=== PATIENT | female | born 1960 | race Caucasian/White ===

== ENCOUNTER 2017-03-20 13:01 | Emergency (ER) | payer OTHER ==
[~2017-03-20] VITALS: Ht 162.6 cm; Wt 72.6 kg
--- NOTE | 2017-03-20 13:02 | NUR ---
PT BIBA TO BED 8 AT THIS TIME.
[2017-03-20 13:04] VITALS: BP 156/60
--- NOTE | 2017-03-20 13:05 | NUR ---
56/F BIBA FROM FIELD FOR R KNEE PAIN & GENERAL WEAKNESS R/T ALCOHOL WITHDRAWAL. AWAKE AND ALERT ON ARRIVAL. PT JUST DISCHARGED FROM ER THIS AM SAME S/S. DENIES MED HX. DENIES N/V/D; AAOX4 WITH EVEN AND UNSTEADY GAIT; LUNGS CLEAR BL; HR EVEN AND REGULAR; PT DENIES ANY FEVER, CP, SOB, OR COUGH AT THIS TIME; PATIENT STATES PAIN OF 5/10 AT THIS TIME; BP 170/97. MD MADE AWARE. PATIENT POSITIONED FOR COMFORT; HOB ELEVATED; BEDRAILS UP X2; BED DOWN. ER MD MADE AWARE OF PT STATUS. Addendum: 03/20/17 at 1642 by [email or web address] PT HAS TREMOR.
--- NOTE | 2017-03-20 13:30 | NUR ---
Patient appears to be resting comfortably in bed. BP 145/96, P 96/MINS, Respirations even and unlabored.WILL CONTINUE TO MONITOR. AWAITING FORDR DONI EVALUATING.
[2017-03-20 14:33] LABS: BASOPHILS # (AUTO) 0.2 K/uL (0.00-0.22); BASOPHILS % (AUTO) 4.3 % (0.0-2.0); EOSINOPHILS # (AUTO) 0.1 K/uL (0-0.4); EOSINOPHILS % (AUTO) 1.8 % (0.0-4.0); HEMATOCRIT 29.3 % (36-48); HEMOGLOBIN 9.5 g/dL (12.0-16.0); LYMPHOCYTES # (AUTO) 0.5 K/uL (2.5-16.5); LYMPHOCYTES % (AUTO) 12.9 % (20.5-51.1); MEAN CORPUSCULAR HEMOGLOBIN 28 pg (27-31); MEAN CORPUSCULAR HGB CONC 32 g/dL (33-37); MEAN CORPUSCULAR VOLUME 86 fL (80-94); MONOCYTES # (AUTO) 0.1 K/uL (0.8-1.0); MONOCYTES % (AUTO) 2.7 % (1.7-9.3); NEUTROPHILS # (AUTO) 3.2 K/uL (1.8-7.7); NEUTROPHILS % (AUTO) 78.3 % (42.2-75.2); PLATELET COUNT (AUTO) 217 K/uL (140-450); RED CELL DISTRIBUTION WIDTH 19.7 % (11.6-13.7); WHITE BLOOD COUNT (AUTO) 4.1 K/uL (4.8-10.8)
--- NOTE | 2017-03-20 14:35 | NUR ---
Patient appears to be resting comfortably in bed. Vital Signs within normal limits. Respirations even and unlabored.WILL CONTINUE TO MONITOR.
[2017-03-20 14:53] LABS: ANION GAP 12.7 (8-16); CARBON DIOXIDE 26.4 mmol/L (21-32); CREATININE 0.6 mg/dL (0.6-1.3); POTASSIUM 4.1 mmol/L (3.5-5.1)
[2017-03-20 14:58] LABS: ALBUMIN 3.2 g/dL (3.4-5.0); TOTAL BILIRUBIN 1.2 mg/dL (0.0-1.0)
--- NOTE | 2017-03-20 15:32 | NUR ---
PT ATE 1/2 OF SANDWICH. NO N/V AT THIS TIME. PT URENATED, URINE DIP DONE, NOTIFIED DR MARION,
[2017-03-20] MEDS ORDERED: NACL 0.9% 1,000 ML IV ONE (16:00)
--- NOTE | 2017-03-20 16:03 | NUR ---
Patient being evaluated by DR MARION at bedside.
--- NOTE | 2017-03-20 16:33 | NUR ---
АНДРЕЙ CODE ENFORCEMENT AT BEDSIDE. Addendum: 03/20/17 at 1643 by [email or web address] PT HAS NAUSEA. NOTIFIED DR MARION.
[2017-03-20] MEDS ORDERED: ONDANSETRON 4 MG ODT PO ONE (16:40)
--- NOTE | 2017-03-20 16:59 | NUR ---
Patient given written and verbal discharge instructions and verbalizes understanding. Given copies of tests performed during visit. Patient is awake, alert and oriented. Ambulatory with UNsteady gait W/ W/C. offer of intermediate placement. Given list of available shelters in surrounding areas. [place] CODE ENFORCEMENT WITH PT AT THIS TIME.
--- NOTE | 2017-03-20 16:59 | NUR ---
Note courtneyone in EDM - 03/20/17 at 1705 by [facility] Patient given written and verbal discharge instructions and verbalizes understanding. Given copies of tests performed during visit. Patient is awake, alert and oriented. Ambulatory with steady gait. offer of [facility] placement. Given list of available shelters in surrounding areas. [place] CODE ENFORCEMENT WITH PT AT THIS TIME.
[2017-03-20 17:03] VITALS: BP 134/69
== END 2017-03-20 16:59 | disposition home or self-care (01) ==
LOC: MED 13:01
DX: F10.239 Alcohol dependence with withdrawal, unspecified (principal); N39.0 Urinary tract infection, site not specified; F17.200 Nicotine dependence, unspecified, uncomplicated
CPT/HCPCS: 36415; 80053; 81002; 85025; 99284; S0119

== ENCOUNTER 2017-12-03 22:21 | Inpatient (IN) | payer OTHER ==
[~2017-12-03] VITALS: Ht 162.6 cm; Wt 76.2 kg
[2017-12-03 22:25] VITALS: BP 119/74
--- NOTE | 2017-12-03 22:43 | NUR ---
PT BIBA TO ER BED 6 Addendum: 12/03/17 at 2246 by [facility] PT BIBA TO ER BED 4
--- NOTE | 2017-12-03 22:46 | NUR ---
57/F BIBA FOR SI. PT WAS PUT IN 5150 HOLD BY CONSUELO LOWE. PT REPORTS SI STATES " I WANT TO DRINK VODKA UNTIL I ". SITTER AT BEDSIDE, BELONGINGS SENT TO SECURITY. PMH: SCHIZO, BIPOLAR DO, DEPRESSION, LEFT SHOULDER INJURY
[2017-12-03 23:31] LABS: BASOPHILS % (AUTO) 0.9 % (0.0-2.0); EOSINOPHILS % (AUTO) 0.8 % (0.0-4.0); HEMATOCRIT 30.9 % (36-48); HEMOGLOBIN 10.2 g/dL (12.0-16.0); LYMPHOCYTES # (AUTO) 0.9 K/uL (2.5-16.5); LYMPHOCYTES % (AUTO) 29.9 % (20.5-51.1); MEAN CORPUSCULAR HEMOGLOBIN 33 pg (27-31); MEAN CORPUSCULAR HGB CONC 33 g/dL (33-37); MONOCYTES # (AUTO) 0.3 K/uL (0.8-1.0); MONOCYTES % (AUTO) 9.2 % (1.7-9.3); NEUTROPHILS # (AUTO) 1.8 K/uL (1.8-7.7); NEUTROPHILS % (AUTO) 59.2 % (42.2-75.2); PLATELET COUNT (AUTO) 120 K/uL (140-450); RED BLOOD CELL COUNT(AUTO) 3.15 MIL/uL (4.20-5.40)
[2017-12-03 23:46] LABS: ACETAMINOPHEN 1.6 ug/ml (10-30); ALBUMIN 2.8 g/dL (3.4-5.0); ANION GAP 14.3 (8-16); ASPARTATE AMINOTRANSFERASE 73 U/L (15-37); CHLORIDE 99 mmol/L (98-107); GFR ARICAN-AMERICAN 74 mL/min (>90); GLUCOSE 101 mg/dL (74-106); POTASSIUM 4.3 mmol/L (3.5-5.1); SODIUM SERUM 137 mmol/L (136-145); TOTAL BILIRUBIN 0.3 mg/dL (0.0-1.0); UREA NITROGEN, BLOOD 12 mg/dL (7-18)
[2017-12-03 23:49] LABS: SALICYLATE < 2.8 mg/dL (2.8-20.0)
--- NOTE | 2017-12-04 | NUR ---
Patient appears to be resting comfortably in bed. Vital Signs within normal limits. Respirations even and unlabored.Sitter at bedside
[2017-12-04 00:29] LABS: APPEARANCE,URINE SL CLOUDY (CLEAR); BILIRUBIN,URINE NEGATIVE (NEGATIVE); BLOOD, URINE NEGATIVE (NEGATIVE); COLOR,URINE YELLOW (YELLOW); LEUKOCYTE ESTERASE ,URINE NEGATIVE (NEGATIVE); NITRITE, URINE NEGATIVE (NEGATIVE); UGLUCOSE NEGATIVE (NEGATIVE)
--- NOTE | 2017-12-04 01:00 | NUR ---
Patient appears to be resting comfortably in bed. Vital Signs within normal limits. Respirations even and unlabored.Sitter at bedside
--- NOTE | 2017-12-04 02:30 | NUR ---
Patient appears to be resting comfortably in bed.Respirations even and unlabored. sitter at bedside
--- NOTE | 2017-12-04 03:30 | NUR ---
Patient appears to be resting comfortably in bed.Respirations even and unlabored. sitter at bedside
--- NOTE | 2017-12-04 04:30 | NUR ---
Patient appears to be resting comfortably in bed.Respirations even and unlabored. sitter at bedside
--- NOTE | 2017-12-04 05:41 | NUR ---
CALLED [facility], NO RESPONSE
--- NOTE | 2017-12-04 05:50 | NUR ---
SPOKE TO ART FROM [facility], WILL BEGIN STEPS FOR PLACEMENT
--- NOTE | 2017-12-04 06:00 | NUR ---
Patient appears to be resting comfortably in bed.Respirations even and unlabored. sitter at bedside
--- NOTE | 2017-12-04 07:22 | NUR ---
Pt report given to MICHELE LINDSAY. Transfer of care at this time.
--- NOTE | 2017-12-04 07:23 | NUR ---
Shift report received. [facility] aware patient is on a 5150. Faxed over paperwork to [facility], spoke to Capri. they are reviewing the chart and pending discharges. awaiting callback for possible placement. Faxed over paperwork to [facility], spoke to Aislinn. they are reviewing the chart and pending discharges. awaiting callback for possible placement. No beds vacancies at this time at [facility], [facility], [place], [facility], and [facility]. will call again later on today for update
--- NOTE | 2017-12-04 07:34 | NUR ---
Pt eating breakfast, tolerating well.
[2017-12-04] MEDS ORDERED: ACETAMINOPHEN EXTRA STRENGTH 500 MG TAB PO ONE ×3 (07:45→08:10)
--- NOTE | 2017-12-04 07:45 | NUR ---
REPORT GIVEN TO PARRIS LINDSAY. DR. CM MADE AWARE PT C/O LEFT SHOULDER PAIN.
--- NOTE | 2017-12-04 07:45 | NUR ---
Received report from Anum. Pt. sitting in bed quietly eating breakfast. A/Ox4, able to make needs known. In room air. No acute respiratory distress noted. v/s: T 97.7, P: 100 RR 20 BP 106/59 SPO2 97%. Skin intact. C/O of left shoulder pain. Doctor made aware. Will follow up on order. Will continue to monitor.
--- NOTE | 2017-12-04 08:21 | NUR ---
Pt. resting in bed comfortably. No acute respiratory distress noted. Will continue to monitor.
--- NOTE | 2017-12-04 09:58 | NUR ---
PT ASSISTED TO USE BEDSIDE COMMODE.
--- NOTE | 2017-12-04 10:02 | NUR ---
PT ATE PUDDING.
--- NOTE | 2017-12-04 10:11 | NUR ---
PT APPEARS TO BE RESTING CMFORTABLY IN BED. VS WNL.
--- NOTE | 2017-12-04 10:33 | NUR ---
[facility] aware patient is still in ER. Called for an update on [facility] and [facility]. Pt chart is still in review and pending discharges. Will call unit back once new information has been received on hopeful placement. Spoke to Marshall in ER.
--- NOTE | 2017-12-04 10:48 | NUR ---
PHONE PROVIDED TO PT TO MAKE A CALL TO BANK PER PT REQUEST.
--- NOTE | 2017-12-04 10:57 | NUR ---
PT STATED THAT HER CARDS ARE STOLEN. BECAME ABLE TO TALK WITH BANK REGARDING HER BANK STATEMENTS.
[2017-12-04] MEDS ORDERED: ACETAMINOPHEN 325 MG TAB PO PRN (11:10)
--- NOTE | 2017-12-04 11:12 | NUR ---
PT APPEARS TO BE RESTING IN BED COMFORTABLY. NO CHANGE IN LOC. ON CONTINUOUS MONITORING.
--- NOTE | 2017-12-04 11:16 | NUR ---
DR. LATIF AT BEDSIDE EVALUATING PT.
--- NOTE | 2017-12-04 12:31 | NUR ---
Pt appears to be resting in bed comfortably. No acute distress noted. No change in loc. pt is going to be transferred to [place].
--- NOTE | 2017-12-04 12:45 | NUR ---
PT TRANSFERRED TO [place] SAFELY VIA GURNEY. PT ON STABLE CONDITION.
--- NOTE | 2017-12-04 13:00 | NUR ---
PATIENT ARRIVED ON UNIT ON [facility] WITH ER NURSE PARRIS WHO IS TO STAY 1:1 SITTER FOR PATIENT. PATIENT ALERT AND ABLE TO MAKE NEEDS KNOWN. NO ACUTE DISTRESS NOTED.PATIENT WITHOUT IV ACCESS. PATIENT WITH SLING TO LEFT ARM FOR LEFT SHOULDER FX. SKIN INTACT. ADMISSIONS ASSESSMENT PERFORMED. VSS. PATIENT CONTINUE TO STATE SUICIDAL IDEATIONS. PATIENT RESPONDS APPROPRIATELY TO QUESTIONS.ID BAND IN PLACE. MRSA SWAB COLLECTED. PATIENT WITH 1:1 SITTER.WILL CONT TO MONITOR PT.
[2017-12-04 13:15] VITALS: BP 140/76
--- NOTE | 2017-12-04 13:46 | NUR ---
[facility] aware patient is now on the Tele Unit. will update tele when new information has been received from contacted hospitals for possible placement.
[2017-12-04] MEDS: MORPHINE SULFATE 2 MG/ML SYR IVP PRN ×2 (14:17→21:21)
--- NOTE | 2017-12-04 15:30 | NUR ---
PATIENT IN ROOM RESTING IN BED. PATIENT STATING CONFORTABLE AFTER MORPHINE ADMINISTERED EARLIER. PATIENT CONT WITH 1:1 SITTER AT BEDSIDE. WILL CONT TO MONITOR.
[2017-12-04 16:00] VITALS: BP 134/73
--- NOTE | 2017-12-04 17:41 | NUR ---
No update from Contacted facilities at this time. will endorse to business relations manager to continue looking for placement.
[2017-12-04] MEDS: HYDROcodone/APAP 5/325 MG 1 TAB TAB PO PRN (18:21)
--- NOTE | 2017-12-04 18:21 | NUR ---
PATIENT IN NEW ROOM. CONT WITH 1:1 SITTER. PATIENT RESPONDS APPROPRIATELY TO QUESTIONS. SMILES WHEN TALKING. MEDICATED WITH NORCO FOR 5/10 PAIN RO LEFT SHOULDER. WILL CONT TO MONITOR.
--- NOTE | 2017-12-04 19:18 | NUR ---
ENDORSED REPORT TO INSTITUTIONAL AIDE NURSE AT BEDSIDE . PATIENT STABLE .
--- NOTE | 2017-12-04 19:20 | NUR ---
RECEIVED REPORT. PT RESTING IN BED. AAOX4. NO S/S OF ACUTE DISTRESS. PT DENIES ANY SI AT THIS TIME. IV SITE PATENT AND INTACT. WILL CONTINUE TO MONITOR.
[2017-12-05] VITALS: BP 147/96
--- NOTE | 2017-12-05 00:13 | NUR ---
PT SLEEPING IN BED. NO S/S OF ACUTE DISTRESS. PT REMAINS STABLE.
--- NOTE | 2017-12-05 03:22 | NUR ---
Contacted the following facilities regarding bed availability, no beds available, no eta. Will endorse to AM shift for follow up and further assist with bed placement. [facility], [facility], [facility], [facility], [place], [facility], [facility]
--- NOTE | 2017-12-05 05:18 | NUR ---
PT SLEEPING IN BED. NO S/S OF ACUTE DISTRESS. WILL CONTINUE TO MONITOR.
--- NOTE | 2017-12-05 07:30 | NUR ---
RECEIVED PT REPORT FROM FOOD SERVICE AMBASSADOR. PT IS 5150, 1:1 SITTER. PT IS AWAKE, ALERT, OREINTEDX4. NO ACUTE DISTRESS NOTED. IV NOTED L HAND 22G.PATENT AND INTACT, SL. SLING NOTED TO LEFT ARM FOR LEFT SHOULDER FX. SKIN INTACT. DENIES SI AT THIS TIME. PT STATED SHE HAS SI WHEN SHE IS ON THE STREET BECAUSE THE INFLUENCE OF ETOH. PT STATED THAT SHE LIKES THE PAIN MANAGEMENT WITH MORPHINE RATHER THAN ETOH. WILL CONTINUE TO MONITOR PT.
[2017-12-05 08:00] VITALS: BP 116/68
[2017-12-05] MEDS: FOLIC ACID 1 MG TAB PO SCH (08:40)
[2017-12-05] MEDS: MULTIVITAMIN/MINERALS 1 TAB PO SCH (08:41)
[2017-12-05] MEDS: THIAMINE 100 MG TAB PO SCH (08:41)
[2017-12-05] MEDS: MORPHINE SULFATE 2 MG/ML SYR IVP PRN ×3 (08:42→20:42)
--- NOTE | 2017-12-05 08:45 | NUR ---
PT C/O PAIN 8/10 OF LEFT SHOULDER. PAIN MED GIVEN.
--- NOTE | 2017-12-05 09:16 | NUR ---
PATIENT HAS BEEN SCREENED AND CATEGORIZED LOW NUTRITION RISK. PATIENT WILL BE SEEN WITHIN 7 DAYS OF ADMISSION. 12/11/[address]
--- NOTE | 2017-12-05 11:30 | NUR ---
FAXED INITIAL REVIEW TO [facility] [phone] PHONE CONCEPCION [phone]
--- NOTE | 2017-12-05 14:09 | NUR ---
Pt Chart is still in review @ [facility], [facility], and [facility]. [facility] beds available @[facility], [facility], [facility], and [facility]. will continue to look for placement.
[2017-12-05 16:00] VITALS: BP 141/66
--- NOTE | 2017-12-05 18:22 | NUR ---
No update from contacted facilities at this time. will update Unit once new information has been received. will endorse to retail shift supervisor to continue looking for placement.
--- NOTE | 2017-12-05 19:30 | NUR ---
REPORT GIVEN TO PEER EDUCATOR NURSE AT BEDSIDE. PT IN STABLE CONDITION.
--- NOTE | 2017-12-05 19:31 | NUR ---
RECEIVED PT AWAKE, COMPLAINING OF LEFT SHOULDER PAIN, MADE AWARE OF NEXT DUE TIME, VITAL SIGNS STABLE, LEFT ARM SLING IN PLACE, NO SUICIDAL PLAN AT THIS TIME, SAFETY MEASURES IN PLACE, SITTER AT BEDSIDE.
--- NOTE | 2017-12-05 21:20 | NUR ---
PT REMOVED LEFT ARM SLING, PREFERS HER OWN ARM SLING, SECURITY PAGED AND BROUGHT HER ARM SLING, APPLIED WITH ASSIST BY MARSHA ERICKSON, PT VERBALIZED IT FITS BETTER, ALL NEEDS ATTENDED.
[2017-12-05] MEDS: LORazepam 1 MG TAB PO PRN (23:19)
--- NOTE | 2017-12-05 23:25 | NUR ---
PT STILL AWAKE, PT ANXIOUS UNABLE TO GO SARITA SLEEP, VITAL SIGNS STABLE, MEDICATED PRN WITH ATIVAN PO, MONITORED CLOSELY.
[2017-12-06] VITALS: BP 127/70
--- NOTE | 2017-12-06 01:23 | NUR ---
PT TRANSFERRED TO ROOM 109B, PT UPSET THERE IS NO TV OR CLOCK IN THE ROOM, EXPLAINED TO HER THE PROTOCOL FOR 5150, PT STATED "I HOPE THEY WILL RELEASE ME TODAY", CONTINUE TO MONITOR CLOSELY, SITTER AT BEDSIDE.
[2017-12-06] MEDS: MORPHINE SULFATE 2 MG/ML SYR IVP PRN ×3 (03:23→17:41)
--- NOTE | 2017-12-06 03:30 | NUR ---
PT COMPLAINING OF LEFT SHOULDER PAIN, AMBULATED TO BR WITH STEADY GAIT AND VOIDED FREELY, MEDICATED PRN WITH MORPHINE IVP, MONITORED CLOSELY.
[2017-12-06] MEDS: HYDROcodone/APAP 5/325 MG 1 TAB TAB PO PRN ×2 (06:14→15:09)
--- NOTE | 2017-12-06 06:15 | NUR ---
PT CRYING COMPLAINING OF LEFT SHOULDER PAIN, NORCO PO GIVEN, MONITORED CLOSELY, SITTER AT BEDSIDE.
--- NOTE | 2017-12-06 07:25 | NUR ---
PT SLEEPING, NO SIGNS OF DISTRESS, REPORT GIVEN TO NEFTALI VALDERRAMA FOR CONTINUITY OF CARE.
--- NOTE | 2017-12-06 07:26 | NUR ---
RECEIVED REPORT FROM CERTIFIED PEDIATRIC NURSE PRACTITIONER NURSE. PATIENT LYING DOWN SLEEPING, AROUSABLE BY VOICE. NO DISTRESS NOTED. PAIN WITHIN TOLERABLE AT THIS TIME. AAOX4, CALM, COOPERATIVE, SKIN COLOR APPROPRIATE TO ETHNICITY, WARM TO TOUCH. SKIN IS INTACT. LUNGS CTA ON ALL LOBES. ABDOMEN SOFT, NON-DISTENDED. IV SITE INTACT, ON SALINE LOCK. REVIEWED PLAN OF CARE WITH PATIENT. PATIENT VERBALIZED UNDERSTANDING. SAFETY MEASURES IN PLACE, 1:1 SITTER AT BEDSIDE. WILL CONTINUE TO MONITOR.
[2017-12-06 08:00] VITALS: BP 132/72
[2017-12-06] MEDS: MULTIVITAMIN/MINERALS 1 TAB PO SCH (08:38)
[2017-12-06] MEDS: LORazepam 1 MG TAB PO PRN ×2 (08:38→15:00)
[2017-12-06] MEDS: THIAMINE 100 MG TAB PO SCH (08:38)
[2017-12-06] MEDS: FOLIC ACID 1 MG TAB PO SCH (08:38)
--- NOTE | 2017-12-06 08:42 | NUR ---
PATIENT LYING IN BED. NO DISTRESS NOTED. PATIENT FEELING ANXIOUS, ATIVAN GIVEN. OTHER SCHEDULED MEDICATION GIVEN PER MD ORDERS. SAFETY MEASURES IN PLACE, 1:1 SITTER AT BEDSIDE. WILL CONTINUE TO MONITOR.
--- NOTE | 2017-12-06 10:43 | NUR ---
PATIENT LYING IN BED WITH COMPLAINTS OF 8/10 LEFT SHOULDER PAIN, MORPHINE GIVEN PER MD ORDERS. SAFETY MEASURES IN PLACE, 1:1 SITTER AT BEDSIDE. WILL CONTINUE TO MONITOR.
--- NOTE | 2017-12-06 10:50 | NUR ---
Still no available beds at this time. Will continue to follow up.
[2017-12-06] MEDS: MUPIROCIN 2% OINT 22 GM TUBE TP SCH (15:01)
[2017-12-06] MEDS: CHLORHEXADINE GLUC 2% CLOTH TP SCH (15:02)
--- NOTE | 2017-12-06 15:10 | NUR ---
Still no beds. Will continue to look for placement.
--- NOTE | 2017-12-06 15:16 | NUR ---
PATIENT SITTING IN BED WITH COMPLAINTS OF MODERATE PAIN, MEDICATED WITH NORCO. OTHER SCHEDULED MEDICATIONS DUE GIVEN. SAFETY MEASURES IN PLACE, CALL LIGHT WITHIN REACH. WILL CONTINUE TO MONITOR.
[2017-12-06 16:00] VITALS: BP 140/69
--- NOTE | 2017-12-06 17:45 | NUR ---
PATIENT COMPLAINS OF 8/10 PAIN ON LEFT SHOULDER, MORPHINE GIVEN PER MD ORDERS. NO DISTRESS NOTED. CONDITION UNCHANGED. DENIES ANY THOUGHTS OF HARMING SELF AT THIS TIME. WILL CONTINUE TO MONITOR.
--- NOTE | 2017-12-06 19:30 | NUR ---
ENDORSED PLAN OF CARE TO MACHINE BUFFER RN. PATIENT IS IN STABLE CONDITION.
--- NOTE | 2017-12-06 19:34 | NUR ---
RECEIVED FROM AM RN IN BED SLEEPING. WAKES UP WHEN CALLED BY DAVION. SITTER 1:1. NO NOTED RESTLESSNESS. DX. OF SUICIDAL IDEATION. UNDER DR. MARTIN CARE/PSYCHIATRY. ISOLATION PRECAUTION RT MRSA NARES +.
[2017-12-07 00:11] VITALS: BP 136/68
[2017-12-07] MEDS: MORPHINE SULFATE 2 MG/ML SYR IVP PRN ×4 (00:28→21:43)
--- NOTE | 2017-12-07 00:44 | NUR ---
PT. AWAKE AT THIS TIME SITTING AT EDGE OF BED. REQUESTING FOR SNACK. PROVIDED WITH SANDWICH. REQUESTED FOR PAIN RELIEVER TOO RT PAIN TO LEFT ARM. "THE FREIGHT ELEVATOR OPERATOR DID THAT " NOTED LEFT ARM INFLAMED. MEDICATED WITH PAIN RELIEVER . GOOD AFFECT. SMILING ALL THE TIME. VERBALIZES WELL. SITTER 1:1.
--- NOTE | 2017-12-07 03:11 | NUR ---
SLEPT BACK POST MEDICATION OF MORPHINE IVP. NO RESTLESSNESS AT THIS TIME. SITTER 1:1.
--- NOTE | 2017-12-07 07:15 | NUR ---
RECEIVED PT FROM STOCK BROKER NURSE, NO SIGNS OF ACUTE DISTRESS.
--- NOTE | 2017-12-07 07:29 | NUR ---
PT. AWAKE AT THIS TIME. NO COMPLAINTS DONE. SITTER 1:1.
--- NOTE | 2017-12-07 07:30 | NUR ---
RECEIVED REPORT FROM COOK FISHING VESSEL NURSE, PT IS SLEEPING IN BED BUT EASILY AWAKEN, PT IS AAOX3-4, AMBULATORY, SKIN IS INTACT, PT HAS IV ON HER LEFT HAND, PATENT, INTACT, FLUSHING WELL, NO S/S OF RESPIRATORY DISTRESS OR DISCOMFORT NOTED, DISCUSSED PLAN OF CARE WITH PT, PT VERBALIZED UNDERSTANDING, SAFETY/SEIZURE PRECAUTIONS ARE IN PLACE, 1:1 SITTER IS AT BEDSIDE, WILL CONTINUE TO MONITOR.
[2017-12-07 08:00] VITALS: BP 147/82
[2017-12-07] MEDS: MULTIVITAMIN/MINERALS 1 TAB PO SCH (08:43)
[2017-12-07] MEDS: FOLIC ACID 1 MG TAB PO SCH (08:43)
[2017-12-07] MEDS: THIAMINE 100 MG TAB PO SCH (08:44)
--- NOTE | 2017-12-07 09:30 | NUR ---
PT RESTING IN BED. MOTHER CALLED ASKING ABOUT PLAN OF CARE. TOLD THAT WE ARE WAITING TO FIND PLACEMENT FOR PT. POSSIBLY TRANSFER TO PSY FACILITY. STILL ON 1244
--- NOTE | 2017-12-07 11:35 | NUR ---
PT IN BED, NO SIGNS OF ACUTE DISTRESS, STILL 1:1 SITTER, ASKED TO WALK AROUND UNIT TOLD SHE MAY WALK AROUND ROOM WITH SUPERVISION. WILL CONTINUE FREQ ROUNDS.
[2017-12-07] MEDS: HYDROcodone/APAP 5/325 MG 1 TAB TAB PO PRN (12:30)
[2017-12-07] MEDS: CHLORHEXADINE GLUC 2% CLOTH TP SCH (12:35)
--- NOTE | 2017-12-07 13:15 | NUR ---
PT C/O OF PAIN 6-03/16 AT TIMES. EXPLAINED THAT I CAN GIVE MORPHINE WHEN DUE, WILL GIVE NORCO TO HELP RELIEVE PAIN.
[2017-12-07] MEDS: MUPIROCIN 2% OINT 22 GM TUBE TP SCH (14:15)
--- NOTE | 2017-12-07 14:44 | NUR ---
WILL GIVE MORPHINE TO HELP RELIEVE PAIN, STILL 1:1 SITTER, CALL LIGHT WITHIN REACH, BED IN LOWEST POSITION, IV SITE IS CLEAN AND INTACT, PATENT, NO PAIN.
--- NOTE | 2017-12-07 17:00 | NUR ---
PT SLEEPING IN BED, WILL CONTINUE FREQ ROUNDS, STILL 1:1 SITTER, CALL LIGHT WITHIN REACH.
[2017-12-07 17:26] VITALS: BP 126/69
--- NOTE | 2017-12-07 19:20 | NUR ---
ENDORSED PT TO HOME INSURANCE AGENT NURSE WILL CONTINUE PLAN OF CARE, PT STABLE AT THIS TIME
--- NOTE | 2017-12-07 19:25 | NUR ---
RECEIVED FROM AM RN AWAKE AND ALERT. SITTER 1:1. ABLE TO VERBALIZE NEEDS WELL. NO SOB. DENIES PAIN AT THIS TIME. ROM X 4. CARE PLANS FOR THE NIGHT DISCUSSED WITH HER. 5150 STATUS.
[2017-12-07] MEDS ORDERED: Z-GUARD PASTE TP ONE (21:00)
[2017-12-07 21:40] VITALS: BP 150/81
[2017-12-07] MEDS: LORazepam 1 MG TAB PO PRN (21:43)
--- NOTE | 2017-12-07 22:34 | NUR ---
SLEEPING AT THIS TIME. RESTLESS EARLIER . STATING SHE WANTS TO REST. 1:1 SITTER. PT. BEEN IN AND OUT OF THE RESTROOM. STATED THAT SHE FEELS LIKE GOING URINATE MORE. PT. ABLE TO VERBALIZE SIMPLE NEEDS.
--- NOTE | 2017-12-07 23:27 | NUR ---
There are no vacancy at any designated facilities at this time, still continuing to call for placement, will notify floor nurse soon as placement is acquired.
--- NOTE | 2017-12-08 02:52 | NUR ---
SLEEPING . WAKES UP WHEN TOUCHED AND CALLED BY NAME. SITTER 1:1-
--- NOTE | 2017-12-08 04:10 | NUR ---
SLEEPING STILL. WAKES UP EASILY WHEN CALLED BY NAME. ENDORSED TO THE NEXT RN FOR CONTINUITY OF CARE.
--- NOTE | 2017-12-08 04:11 | NUR ---
RECEIVED PT SLEEPING, NO DISTRESS NOTED, SITTER AT BEDSIDE, MONITORED CLOSELY.
[2017-12-08] MEDS: MORPHINE SULFATE 2 MG/ML SYR IVP PRN ×4 (04:51→21:49)
--- NOTE | 2017-12-08 07:30 | NUR ---
RECEIVED PATIENT RESTING IN BED. SITTER AT BEDSIDE. PATIENT STATES SUICIDAL IDEATION. CONTINUES TO HAVE SUICIDAL THOUGHTS WHEN IN PAIN. PATIENT HAS SLING FOR LEFT ARM FX. NO S/S OF ACUTE RESPIRATORY DISTRESS NOTED. AMBULATORY. ALERT AND ORIENTED, FOLLOWS COMMANDS. IV SITE PATENT AND INTACT. C/O LEFT ARM DISCOMFORT, WILL MEDICATE ORDERED.
[2017-12-08 08:00] VITALS: BP 132/59
--- NOTE | 2017-12-08 08:00 | NUR ---
PT AWAKE, NO SIGNS OF DISTRESS, REPORT GIVEN TO NEFTALI LIU FOR CONTINUITY OF CARE.
[2017-12-08] MEDS: THIAMINE 100 MG TAB PO SCH (09:05)
[2017-12-08] MEDS: MULTIVITAMIN/MINERALS 1 TAB PO SCH (09:05)
[2017-12-08] MEDS: FOLIC ACID 1 MG TAB PO SCH (09:05)
--- NOTE | 2017-12-08 12:35 | NUR ---
PATIENT RESTING IN BED, DENIES DISCOMFORT AT THIS TIME. SITTER AT BEDSIDE. PER MD, WILL REEVALUATE FOR PSYCH NEEDS.
--- NOTE | 2017-12-08 14:26 | NUR ---
PAGED DR. MARINA GROUP REGARDING REEVALUATION. SPOKE WITH CASE MANAGEMENT AND PATIENT, PATIENT DENIES SUICIDAL IDEATION AT THIS TIME.
[2017-12-08] MEDS: MUPIROCIN 2% OINT 22 GM TUBE TP SCH (14:43)
[2017-12-08] MEDS: CHLORHEXADINE GLUC 2% CLOTH TP SCH (14:43)
[2017-12-08] MEDS: LORazepam 1 MG TAB PO PRN ×2 (14:44→21:49)
[2017-12-08] MEDS: HYDROcodone/APAP 5/325 MG 1 TAB TAB PO PRN (14:44)
--- NOTE | 2017-12-08 15:42 | NUR ---
0012 SPOKE WITH PT REGARDING STILL WAITING FOR INPATIENT PSYCH BED. PER PT SHE STATES THAT SHE IS NO LONGER SUICIDAL AND HAS REQUESTED A PSYCH RE-EVALUATION SHE WOULD LIKE TO LEAVE SHE NEEDS TO GET TO THE BANK. 1836 CONCURRENT REVIEW FAXED TO [facility] [phone]
[2017-12-08 16:00] VITALS: BP 143/71
--- NOTE | 2017-12-08 19:35 | NUR ---
SBAR REPORT GIVEN TO NEFTALI ORTEGA AT PT BEDSIDE. NO S/S OF ACUTE DISTRESS NOTED. SITTER AT BEDSIDE.
[2017-12-08 20:40] VITALS: BP 131/80
--- NOTE | 2017-12-08 23:31 | NUR ---
Per Nurse Amrit and charge nurse Sharon,pt no longer needs psych placement.
--- NOTE | 2017-12-08 23:36 | NUR ---
Received handoff form NEFTALI Welch. Per report MD Shelia Schwarz ([facility]) clears patient from 5150 hold. Medical to follow up. Patient AAOX3 and involved in POC. No concerns verbalized. Received call from David with [facility] and made aware patient received psychiatric clearance this evening. manager environmental healthNEFTALI rosenbaum.
[2017-12-09 00:15] VITALS: BP 130/82
[2017-12-09] MEDS: HYDROcodone/APAP 5/325 MG 1 TAB TAB PO PRN ×2 (01:27→10:21)
[2017-12-09] MEDS: MORPHINE SULFATE 2 MG/ML SYR IVP PRN ×2 (05:49→12:50)
--- NOTE | 2017-12-09 06:51 | NUR ---
Pt AAOX4. Denies SI during shift. No s/s of withdrawal nor depression. Jovial demeanor and involved in care. Verbalizes pain and medicated prn during shift. Pt slept for total 10 hours. Call alejandro accessible. No s/s of distress noted at present. Will continue to monitor.
[2017-12-09 08:00] VITALS: BP 126/66
[2017-12-09] MEDS: MULTIVITAMIN/MINERALS 1 TAB PO SCH (09:10)
[2017-12-09] MEDS: THIAMINE 100 MG TAB PO SCH (09:10)
[2017-12-09] MEDS: FOLIC ACID 1 MG TAB PO SCH (09:10)
[2017-12-09] MEDS: LORazepam 1 MG TAB PO PRN (10:21)
--- NOTE | 2017-12-09 12:30 | NUR ---
SPOKE WITH DR LATIF AND INFORMED HIM THAT PATIENT HAS BEEN CLEARED BY PSYCH. STATES THAT HE WILL COME IN LATER TO WRITE DISCHARGE PRESCRIPTIONS FOR THE PATIENT.
[2017-12-09] MEDS: MUPIROCIN 2% OINT 22 GM TUBE TP SCH (12:49)
[2017-12-09] MEDS: CHLORHEXADINE GLUC 2% CLOTH TP SCH (13:03)
--- NOTE | 2017-12-09 14:35 | NUR ---
CONCURRENT REVIEW FAXED TO [facility] [phone]
[2017-12-09] MEDS ORDERED: ACET-9525 PO (15:50)
[2017-12-09 16:00] VITALS: BP 139/88
--- NOTE | 2017-12-09 17:00 | NUR ---
PATIENT DISCHARGED. HOMELESS RESOURCE PACKET GIVEN TO THE PATIENT. DISCHARGE INSTRUCTIONS AND DISCHARGE PRESCRIPTIONS GIVEN. PATIENT VERBALIZED UNDERSTANDING. IV LINE DISCONTINUED. PATIENT PROVIDED WITH BUS PASS. PATIENT LEFT IN STABLE CONDITION
== END 2017-12-09 17:00 | disposition home or self-care (01) | DRG 753 ==
LOC: MED 22:21 → MTU 12-04 11:34 → INTOOBSV 12-04 11:34 → OBSVTOIN 12-04 18:05 → MTU 12-04 18:09
PROVIDERS: ADMIT Hospitalist; ATTEND Hospitalist
DX: F31.4 Bipolar disorder, current episode depressed, severe, without psychotic features (principal); E43 Unspecified severe protein-calorie malnutrition; R45.851 Suicidal ideations; F41.9 Anxiety disorder, unspecified; F41.0 Panic disorder [episodic paroxysmal anxiety]; F10.20 Alcohol dependence, uncomplicated; Y90.7 Blood alcohol level of 200-239 mg/100 ml; Z96.659 Presence of unspecified artificial knee joint; F17.210 Nicotine dependence, cigarettes, uncomplicated; X58.XXXD Exposure to other specified factors, subsequent encounter; Z59.0 Homelessness; Z68.28 Body mass index [BMI] 28.0-28.9, adult; Z88.6 Allergy status to analgesic agent; Z91.5 Personal history of self-harm; S42.202K Unspecified fracture of upper end of left humerus, subsequent encounter for fracture with nonunion
CPT/HCPCS: G0378 ×7; 36415; 73060; 80053; 81003; 85025; 87081; 93005; G0480; G0482; J2270

== ENCOUNTER 2017-12-17 11:48 | Emergency (ER) | payer OTHER ==
[~2017-12-17] VITALS: Ht 162.6 cm; Wt 80.7 kg
[~2017-12-17 11:48] MED LIST: ACET-9525 PO
--- NOTE | 2017-12-17 11:49 | NUR ---
PT BIBA BLS TO BED 2
[2017-12-17 11:56] VITALS: BP 83/31
--- NOTE | 2017-12-17 12:00 | NUR ---
57Y/F BIB EMS FROM FIELD FOR ETOH ALOC, AWAKE AND ALERT ON ARRIVAL. PATIENT POSITIONED FOR COMFORT; HOB ELEVATED; BEDRAILS UP X2; BED DOWN. ER MD MADE AWARE OF PT STATUS.
[2017-12-17] MEDS ORDERED: NACL 0.9% 1,000 ML IV ONE (12:10)
[2017-12-17 13:23] LABS: BASOPHILS % (AUTO) 0.6 % (0.0-2.0); EOSINOPHILS % (AUTO) 0.9 % (0.0-4.0); HEMOGLOBIN 11.5 g/dL (12.0-16.0); LYMPHOCYTES # (AUTO) 1.3 K/uL (2.5-16.5); LYMPHOCYTES % (AUTO) 37.6 % (20.5-51.1); MEAN CORPUSCULAR HEMOGLOBIN 32 pg (27-31); MEAN CORPUSCULAR HGB CONC 33 g/dL (33-37); MEAN CORPUSCULAR VOLUME 97.8 fL (80-94); MONOCYTES # (AUTO) 0.2 K/uL (0.8-1.0); MONOCYTES % (AUTO) 6.9 % (1.7-9.3); NEUTROPHILS # (AUTO) 1.8 K/uL (1.8-7.7); PLATELET COUNT (AUTO) 343 K/uL (140-450); RED BLOOD CELL COUNT(AUTO) 3.58 MIL/uL (4.20-5.40); RED CELL DISTRIBUTION WIDTH 20.5 % (11.6-13.7); WHITE BLOOD COUNT (AUTO) 3.4 K/uL (4.8-10.8)
[2017-12-17 13:31] LABS: ALBUMIN 2.9 g/dL (3.4-5.0); ANION GAP 15.4 (8-16); CARBON DIOXIDE 24.8 mmol/L (21-32); CREATININE 0.8 mg/dL (0.6-1.3); POTASSIUM 3.2 mmol/L (3.5-5.1); TOTAL BILIRUBIN 0.2 mg/dL (0.0-1.0)
--- NOTE | 2017-12-17 13:52 | NUR ---
Patient appears to be resting comfortably in bed. Vital Signs within normal limits. Respirations even and unlabored.
--- NOTE | 2017-12-17 16:00 | NUR ---
Patient appears to be resting comfortably in bed. Vital Signs within normal limits. Respirations even and unlabored.
--- NOTE | 2017-12-17 18:00 | NUR ---
Patient appears to be resting comfortably in bed. Vital Signs within normal limits. Respirations even and unlabored.
[2017-12-17 19:40] VITALS: BP 118/74
--- NOTE | 2017-12-17 19:40 | NUR ---
Patient discharged with v/s stable. Attempted to give written and verbal after care instructions...pt refused ACI. Ambulatory with steady gait, personal w/c assisted. All questions addressed prior to discharge. Advised to follow up with PMD.
== END 2017-12-17 19:40 | disposition home or self-care (01) ==
LOC: MED 11:48
DX: F10.129 Alcohol abuse with intoxication, unspecified (principal); M79.602 Pain in left arm; F17.210 Nicotine dependence, cigarettes, uncomplicated; Z79.899 Other long term (current) drug therapy; Z88.8 Allergy status to other drugs, medicaments and biological substances; Z96.659 Presence of unspecified artificial knee joint
CPT/HCPCS: 36415; 80053; 85025; 96360; 99284; G0482; J7030

== ENCOUNTER 2017-12-19 03:46 | Emergency (ER) | payer OTHER ==
[~2017-12-19] VITALS: Ht 162.6 cm; Wt 86.2 kg
[2017-12-19 03:46] VITALS: BP 138/98
[2017-12-19] MEDS ORDERED: MORPHINE SULFATE 4 MG/ML SYR IM ONE (04:15)
[2017-12-19 05:10] VITALS: BP 127/83
== END 2017-12-19 05:10 | disposition home or self-care (01) ==
LOC: MED 03:46
DX: S60.221A Contusion of right hand, initial encounter (principal); F17.210 Nicotine dependence, cigarettes, uncomplicated; X58.XXXA Exposure to other specified factors, initial encounter; Y93.89 Activity, other specified; Y99.8 Other external cause status; Y92.89 Other specified places as the place of occurrence of the external cause; Z90.49 Acquired absence of other specified parts of digestive tract; Z98.84 Bariatric surgery status; Z88.8 Allergy status to other drugs, medicaments and biological substances; Z96.659 Presence of unspecified artificial knee joint
CPT/HCPCS: 73130; 96372; 99284; J2270; Q0092

== ENCOUNTER 2017-12-19 08:50 | Emergency (ER) | payer OTHER ==
[~2017-12-19] VITALS: Ht 167.6 cm; Wt 90.7 kg
[2017-12-19 09:00] VITALS: BP 122/71
[2017-12-19 12:31] LABS: APPEARANCE,URINE CLEAR (CLEAR); BILIRUBIN,URINE NEGATIVE (NEGATIVE); BLOOD, URINE NEGATIVE (NEGATIVE); LEUKOCYTE ESTERASE ,URINE NEGATIVE (NEGATIVE); NITRITE, URINE NEGATIVE (NEGATIVE); UGLUCOSE NEGATIVE (NEGATIVE)
[2017-12-19 12:40] LABS: COLOR,URINE STRAW (YELLOW)
[2017-12-19 14:26] VITALS: BP 125/62
== END 2017-12-19 14:26 | disposition home or self-care (01) ==
LOC: MED 08:50
DX: S52.591A Other fractures of lower end of right radius, initial encounter for closed fracture (principal); S42.302D Unspecified fracture of shaft of humerus, left arm, subsequent encounter for fracture with routine healing; F10.129 Alcohol abuse with intoxication, unspecified; Z79.899 Other long term (current) drug therapy; Z88.8 Allergy status to other drugs, medicaments and biological substances; X58.XXXA Exposure to other specified factors, initial encounter; Y93.89 Activity, other specified; Y92.89 Other specified places as the place of occurrence of the external cause; Y99.8 Other external cause status
CPT/HCPCS: 29125; 73060; 81003; 99285; Q0092

== ENCOUNTER 2017-12-20 01:32 | Inpatient (IN) | payer OTHER ==
[~2017-12-20] VITALS: Ht 162.6 cm; Wt 83.5 kg
--- NOTE | 2017-12-20 01:32 | NUR ---
Patient BIBA BLS, transferred to bed 6. RN evaluating patient at bedside.
--- NOTE | 2017-12-20 01:33 | NUR ---
PATIENT PRESENTS TO ED BIBA C/O NOT WANTING TO LIVE ANY LONGER. PATIENT STATES "IM FUCKING DONE" "IM TIRED OF EVERYTHING". PATIENT STATES SHE PLANS ON KILLING HERSELF "BY CUTTING THE ARTERY ALONG THE BACK OF MY NECK" PATIENT STATES SHE HAS 3 PREVIOUS ATTEMPTS IN THE PAST WITH PILLS, PATIENT STATES SHE WILL TRY CUTTING HERSELF AGAIN IN THE FUTURE. PATIENT STATES "I TRIED TO DRINK MYSELF TO A COUPLE OF DAYS AGO." PT DENIES N/V/D; SKIN IS PINK/WARM/DRY; AAOX3; PATIENT BROUGHT IN ON [facility] AND USES WALKER FOR ASSISTANCE; LUNGS CLEAR BL; HR EVEN AND REGULAR; PT DENIES ANY FEVER, CP, SOB, OR COUGH AT THIS TIME; PATIENT STATES PAIN OF 8/10 AT THIS TIME; VSS; PATIENT POSITIONED FOR COMFORT; HOB ELEVATED; BEDRAILS UP X1; BED DOWN. PERSONAL BELONGINGS SENT WITH SECURITY AT THIS TIME; SAFETY MEASURES ENSURED. SITTER AT BEDSIDE; ER MD MADE AWARE OF PT STATUS.
[2017-12-20 01:35] VITALS: BP 110/56
--- NOTE | 2017-12-20 01:41 | NUR ---
Dr. Red evaluating patient at bedside.
[2017-12-20] MEDS ORDERED: ACETAMINOPHEN 325 MG TAB PO ONE (01:50)
[2017-12-20] MEDS ORDERED: ACETAMINOPHEN 325 MG TAB ONE (01:51)
[2017-12-20 02:04] LABS: HEMATOCRIT 32.8 % (36-48); HEMOGLOBIN 11.1 g/dL (12.0-16.0); MEAN CORPUSCULAR HEMOGLOBIN 33 pg (27-31); MEAN CORPUSCULAR HGB CONC 34 g/dL (33-37); PLATELET COUNT (AUTO) 219 K/uL (140-450); RED BLOOD CELL COUNT(AUTO) 3.41 MIL/uL (4.20-5.40); RED CELL DISTRIBUTION WIDTH 21.2 % (11.6-13.7); WHITE BLOOD COUNT (AUTO) 3.3 K/uL (4.8-10.8)
[2017-12-20 02:14] LABS: CARBON DIOXIDE 25.5 mmol/L (21-32); CHLORIDE 100 mmol/L (98-107); CREATININE 0.9 mg/dL (0.6-1.3); GFR ARICAN-AMERICAN 83 mL/min (>90); GLUCOSE 95 mg/dL (74-106); POTASSIUM 3.5 mmol/L (3.5-5.1); SODIUM SERUM 140 mmol/L (136-145); UREA NITROGEN, BLOOD 9 mg/dL (7-18)
[2017-12-20 02:22] LABS: ACETAMINOPHEN < 0.5 ug/ml (10-30); ALBUMIN 3.5 g/dL (3.4-5.0); ASPARTATE AMINOTRANSFERASE 78 U/L (15-37); SALICYLATE < 2.8 mg/dL (2.8-20.0); TOTAL BILIRUBIN 0.3 mg/dL (0.0-1.0)
[2017-12-20 02:26] LABS: PROTHROMBIN TIME 10.4 secs (10.8-13.4)
[2017-12-20 02:30] LABS: LYMPHOCYTES % (MANUAL) 58 % (20-46); MONOCYTES % (MANUAL) 8 % (5-12)
[2017-12-20 02:34] LABS: BARBITURATE, URINE NEG. ng/ml (NEG <=200); BENZODIAZEPINE, URINE POS. ng/mL (NEG <=200); CANNABINOID, URINE NEG. ng/mL (NEG <=50); COCAINE, URINE NEG. ng/mL (NEG <=300); OPIATE, URINE NEG. ng/mL (NEG <=2000); PHENCYCLIDINE SCREEN,URINE NEG. ng/mL (NEG <=25)
--- NOTE | 2017-12-20 02:35 | NUR ---
Patient appears to be resting comfortably in bed. Vital Signs within normal limits. Respirations even and unlabored.
--- NOTE | 2017-12-20 03:35 | NUR ---
Patient appears to be resting comfortably in bed. Vital Signs within normal limits. Respirations even and unlabored.
--- NOTE | 2017-12-20 04:39 | NUR ---
Patient appears to be resting comfortably in bed. Vital Signs within normal limits. Respirations even and unlabored.
--- NOTE | 2017-12-20 05:24 | NUR ---
Patient appears to be resting comfortably in bed. Vital Signs within normal limits. Respirations even and unlabored.
--- NOTE | 2017-12-20 06:24 | NUR ---
Patient appears to be resting comfortably in bed. Vital Signs within normal limits. Respirations even and unlabored.
--- NOTE | 2017-12-20 07:08 | NUR ---
received report from LYNN; Patient appears to be resting comfortably in bed. Vital Signs within normal limits. Respirations even and unlabored.WILL CONTINUE TO MONITOR. Addendum: 12/20/17 at 0839 by [facility] PT STATED SHE HAD FRACTURE L SHOULDER & PAIN R ARM S/P FALL X 2 DAYS AGO & HAD THE APPOINTMENT WITH [facility]THO AT [facility] ON FRIDAY.
--- NOTE | 2017-12-20 07:46 | NUR ---
PT STATED PAIN L SHOULDER & R ARM. R ARM SLIGHTLY SWOLLEN , CAP REFILL <[address] MEMBRENO. CHANGE TO NEW SPLINT R ARM. Addendum: 12/20/17 at 0751 by [email or web address] PT DRANK 2 CUPS OF WATER & URENATED APPROX 500 CC ; YELLOW. LAB AT BEDSIDE. Addendum: 12/20/17 at 0759 by [email or web address] PT STATED STILL HAS A PLAN TO KILL HERSELF BY CUTTING ARTERY AT R NECK . Addendum: 12/20/17 at 0759 [facility] Patient being reevaluated by DR LUND at bedside.
[2017-12-20] MEDS ORDERED: ACETAMINOPHEN EXTRA STRENGTH 500 MG TAB PO ONE (08:00)
--- NOTE | 2017-12-20 08:10 | NUR ---
FOOD TRAY PROVIED FOR PT WITH STEROFORM AT THE TIME. PT ATED 80% OF FOOD.
--- NOTE | 2017-12-20 08:27 | NUR ---
PT REFUSED MEDS. PT STATED" GIVE ME 6 PILLS TYLENOL;JUST 1 PILL ; I DON'T WANT IT. NOTIFIED DR LUND,
--- NOTE | 2017-12-20 09:58 | NUR ---
Patient appears to be resting comfortably in bed. Vital Signs within normal limits. Respirations even and unlabored.WILL CONTINUE TO MONITOR.
[2017-12-20] MEDS ORDERED: ACETAMINOPHEN 325 MG TAB PO PRN ×2 (10:50)
--- NOTE | 2017-12-20 10:53 | NUR ---
BM X1; NORMAL.
[2017-12-20] MEDS ORDERED: NICOTINE TRANSD SYS 21 MG/24 HR PATCH TD SCH (12:00)
[2017-12-20] MEDS ORDERED: MULTIVITAMIN-12 10 ML, THIAMINE 100 MG, FOLIC ACID 1 MG in NACL 0.9% 1,000 ML IV SCH (12:00)
[2017-12-20 12:15] VITALS: BP 137/81
--- NOTE | 2017-12-20 12:15 | NUR ---
RECEIVED PT FROM ER VIA OSMANI, BEDSIDE REPORT OBTAINED, PT IS AAOX4, ABLE TO FOLLOW COMMANDS AND MAKE NEEDS KNOWN, VSS, C/O PAIN TO RIGHT FOREARM AND LEFT UPPER ARM DUE TO HX OF FACTURE. NO S/S OF DISTRESS, CLEAR LUNG SOUNDS RIP. DENIES CHEST PAIN, SOFT ABDOMEN WITH ACTIVE BOWEL SOUNDS, CONTINENT WITH B&B'S, WEAKNESS TO RIP ARM, SOFT CAST TO RIGHT FOREARM NOTED, SKIN IS WARM AND DRY TO TOUCH, INTACT. PT STILL HAVE ACTIVE SUICIDAL IDEATION, STATED, " WANT TO KILL HERSELF WITH HANGING HERSELF, EXPLAINED PLAN OF CARE TO PT, PT VERBALIZED UNDERSTANDING, PLACED PT ON COMFORT POSITION, SAFETY MEASURES IN PLACE, CALL LIGHT WITHIN REACH, WILL CONTINUE TO MONITOR.
--- NOTE | 2017-12-20 12:18 | NUR ---
Patient will be admitted to care of DR SILVERIO . Admited to ICU. Will go to room 6. Belongings list completed. Report to NEFTALI VALDEZ.
[2017-12-20] MEDS: chlordiazePOXIDE 25 MG CAP PO SCH ×2 (13:26→17:00)
[2017-12-20] MEDS: traMADol 50 MG TAB PO PRN ×2 (13:26→21:34)
[2017-12-20] MEDS ORDERED: PNEUMOCOCCAL VACCINE 23 MCG/0.5 ML VIAL IMVAC SCH (13:35)
--- NOTE | 2017-12-20 13:50 | NUR ---
Pt chart was faxed over to [facility] and [facility], pending review. No bed vacancies at [facility], [facility], [facility], [facility], [facility], [facility], [facility], and [facility].
[2017-12-20] MEDS: NICOTINE TRANSD SYS 21 MG/24 HR PATCH TD SCH (14:19)
[2017-12-20] MEDS: LORazepam 1 MG TAB PO PRN ×3 (14:19→23:45)
[2017-12-20 16:00] VITALS: BP 156/91
--- NOTE | 2017-12-20 19:15 | NUR ---
REPORT GIVEN TO YARN EXAMINER SKEINS NURSE AT BEDSIDE FOR CONTINUE OF CARE, PT IS IN STABLE CONDITION AT THIS TIME.
--- NOTE | 2017-12-20 19:30 | NUR ---
RECEIVED REPORT FORM MORNING RN FOR CONTINUITY OF CARE. PT AWAKE, ALERT AND ORIENTED. ABLE TO MAKE NEEDS KNOWN. CURRENTLY C/O PAIN ON RIGHT ARM AND LEFT SHOULD. AFEBRILE. COOPERATIVE TOWARDS STAFF AT THIS TIME. S1+S2 HEARD. PULSES PALPABLE IN ALL EXTREMITIES. CAPILLARY REFILL PRESENT ON ALL EXTREMITIES. LUNG SOUNDS CLEAR. DENIES SOB. NO SIGNS OF RESPIRATORY DISTRESS NOTED. ABDOMEN ROUND, SOFT AND NONDISTENDED. BS ACTIVE IN ALL QUADRANTS. PT CONTINENT AND ABLE TO ASK FOR ASSISTANCE TO USE COMMODE. DOES NOT VOICE SUICIDAL INTENT AT THIS TIME. PT HAS PERIPHERAL IV ACCESS ON LEFT HAND 22G. BANANA BAG RUNNING CURRENTLY AT THIS TIME. HOB KEPT AT 30 DEGREES. ALL SAFETY PRECAUTIONS ARE IN PLACE. WILL CONTINUE TO CLOSELY MONITOR PT.
[2017-12-20 20:00] VITALS: BP 155/83
--- NOTE | 2017-12-20 22:20 | NUR ---
PT ASKING TO ASK DR. SILVERIO FOR STRONGER PAIN MEDICATION. INFORMED PT THAT PREVIOUS SHIFT ALREADY CONTACTED MD REGARDING THIS AND DID NOT ORDER ANY OTHER PAIN MEDICATION. PT UNDERSTOOD.
[2017-12-21] VITALS: BP 175/94
--- NOTE | 2017-12-21 01:01 | NUR ---
PT ASLEEP AT THIS TIME. DOES NOT APPEAR TO BE IN ANY DISTRESS. NO SOB NOTED. BED AT LOW POSSIBLE POSITION. ALL SAFETY PRECAUTIONS IN PLACE. WILL CONTINUE TO MONITOR PT.
[2017-12-21 04:00] VITALS: BP 163/79
[2017-12-21] MEDS: LORazepam 1 MG TAB PO PRN ×3 (04:04→18:21)
--- NOTE | 2017-12-21 04:13 | NUR ---
PT AWAKE AT THIS TIME BUT STATES SHE WANTS TO GO BACK TO SLEEP. PT COOPERATIVE AND USES COMMODE WITH ASSISTANCE. PT C/O MORE PAIN ON HER ARM AND SHOULDER AFTER GETTING OUT OF BED. BED AT LOW POSSIBLE POSITION. ALL SAFETY PRECAUTIONS ARE IN PLACE. WILL CONTINUE TO MONITOR PT.
--- NOTE | 2017-12-21 07:19 | NUR ---
REPORT GIVEN TO MORNING RN FOR CONTINUITY OF CARE. PT IN STABLE CONDITION AT THIS TIME.
--- NOTE | 2017-12-21 07:19 | NUR ---
RECEIVED REPORT FROM NIGHT RN. PT IS SLEEPING BUT AROUSES EASILY, A&0X4. STATES SHE IS IN A LOT OF PAIN, THE MEDICATION GIVEN DOES NOT WORK AND THAT SHE DID NOT SLEEP ALL NIGHT. PT HAS A RIGHT FOREARM SOFT BANDAGE ON TO STABILIZE THE FRACTURE. PT IS ABLE TO AMBULATE AND GET US TO USE THE BEDSIDE COMMODE. PT IS 51/50. PT HAS RIGHT HAND ROSS 22 IV, FLUSHES, ASYMPTOMATIC AND DRESSING DRY AND INTACT. PT'S SKIN IS WARM AND DRY TO TOUCH. PT HAS A NICOTINE PATCH ON HER RIGHT SHOULDER. S1S2 HEARD. LUNG SOUNDS ARE CLEAR BILATERALLY. BOWEL SOUNDS HEARD IN ALL 4 QUADRANTS. PT HAS SCDS ON BOTH LEGS. BED IS LOCKED AND IN LOWEST POSITION. WILL CLOSELY MONITOR.
--- NOTE | 2017-12-21 07:46 | NUR ---
PT ATE BREAKFAST, ABOUT 35% EATEN.
[2017-12-21 08:00] VITALS: BP 149/61
--- NOTE | 2017-12-21 09:10 | NUR ---
PT STATES SHE IS IN A LOT OF PAIN BUT DOES NOT WANT THE MEDICATION THAT HAS BEEN ORDERED. STATES SHE WANTS MORPHINE THAT IS THE ONLY THING THAT HELPS.
[2017-12-21] MEDS: chlordiazePOXIDE 25 MG CAP PO SCH ×3 (09:26→18:21)
[2017-12-21] MEDS: traMADol 50 MG TAB PO PRN ×2 (11:30→18:20)
[2017-12-21 12:00] VITALS: BP 157/84
--- NOTE | 2017-12-21 12:00 | NUR ---
PT SAYS SHE CANNOT SLEEP AT ALL DUE TO PAIN BUT STILL DOES NOT WANT THE MEDICATION WE HAVE FOR HER. DR SILVERIO AWARE OF MEDICATION REQUEST HOWEVER, DUE TO PT'S HX OF ALCOHOL, DR SILVERIO DOES NOT WANT TO GIVE MEDICATION THAT MAY INTERFERE WITH DETOX.
[2017-12-21] MEDS: NICOTINE TRANSD SYS 21 MG/24 HR PATCH TD SCH ×2 (13:26→14:00)
--- NOTE | 2017-12-21 14:24 | NUR ---
PT UP TO EAT AND USE BEDSIDE COMMODE. STATES SHE IS IN A LOT OF PAIN. REFUSED NICOTINE PATCH AND PAIN MEDICATION THAT HAS BEEN ORDERED. STATES SHE WANTS MORPHINE OR NAPROXEN - ISSUE WITH NAPROXEN IS THAT SHE HAS STATED ALLERGY TO IBUPROFEN.
--- NOTE | 2017-12-21 15:47 | NUR ---
LORENA AND SPOKE WITH DR. QUIROGA REGARDING CONSULTATION, STATED SHE WOULD BE BY LATER TODAY
[2017-12-21 16:00] VITALS: BP 156/79
--- NOTE | 2017-12-21 17:25 | NUR ---
PT STATES HER RIGHT ARM AND LEFT SHOULDER STILL HAVE A LOT OF PAIN, THE NEW MEDICATION COMBINATION SEEMS TO HELP IN ADDITION TO ICING HER RIGHT HAND. EVERY FEW HOURS WE HAVE TAKEN OFF THE COMPRESSION BANDAGE AND ICED, REPLACED AFTER 20 MINS OF BEING OFF. PT STATES THIS ROUTINE HELPS WITH THE PAIN.
--- NOTE | 2017-12-21 19:07 | NUR ---
REPORT GIVEN TO NIGHT RN FOR CONTINUATION OF CARE.
--- NOTE | 2017-12-21 19:20 | NUR ---
RECEIVED REPORT FROM MORNING RN FOR CONTINUITY OF CARE. VS STABLE AT THIS TIME. PT CURRENTLY ASLEEP BUT WAKES UP TO NAME. PT C/O PAIN ON RIGHT ARM AND LEFT SHOULDER, MEDICATION ALREADY ADMINISTERED BY PREVIOUS SHIFT. LUNG SOUNDS CLEAR. NO SOB NOTED. PT IN ROOM AIR. S1+S2 HEARD. PULSES PALPABLE. RIGHT ARM ON SPLINT DUE TO PRESENCE OF FRACTURE. ABDOMEN ROUND, SOFT AND NONDISTENDED. BS ACTIVE IN ALL QUADRANTS. PT ABLE TO REPOSITION SELF. USES COMMODE BUT WITH ASSISTANCE. PT HAS LEFT HAND PERIPHERAL IV ACCESS 22G THAT IS SALINE LOCKED AT THIS TIME. BED AT LOW POSSIBLE POSITION. ALL SAFETY PRECAUTIONS ARE IN PLACE. WILL CONTINUE TO MONITOR PT.
[2017-12-21 20:00] VITALS: BP 162/87
--- NOTE | 2017-12-21 21:17 | NUR ---
PT ASLEEP AT THIS TIME. DOES NOT APPEAR TO BE ANY DISTRESS OR DISCOMFORT. PT ELEVATED RIGHT ARM ON PILLOW TO PREVENT FURTHER SWELLING. SCD IN PLACE. BED AT LOW POSSIBLE POSITION. WILL CONTINUE TO MONITOR PT.
[2017-12-22] VITALS: BP 170/77
--- NOTE | 2017-12-22 00:24 | NUR ---
PT WAS C/O PAIN ON RIGHT ARM AND LEFT SHOULDER. RATES THE PAIN A 6 OUT OF 10. OFFERED PAIN MEDICATION BUT PT WAS WANTING TRAMADOL WHICH IS NOT DUE YET. PT REFUSED OTHER PAIN MEDICATION. PT SAYS SHE WILL WAIT FOR TRAMADOL TO BE DUE. PT ASSISTED TO COMMODE AND THEN BACK TO BED. PT ATTEMPTING TO GO BACK TO SLEEP AT THIS TIME. KEPT BED AT LOW POSSIBLE POSITION. WILL CONTINUE TO MONITOR PT
[2017-12-22] MEDS: LORazepam 1 MG TAB PO PRN ×3 (00:30→21:29)
--- NOTE | 2017-12-22 02:55 | NUR ---
PT ASLEEP AT THIS TIME. DOES NOT APPEAR TO BE IN ANY PAIN OR DISCOMFORT. NO SIGNS OF DISTRESS NOTED. ALL SAFETY PRECAUTIONS ARE IN PLACE. WILL CONTINUE TO MONITOR PT.
--- NOTE | 2017-12-22 02:57 | NUR ---
[facility] IS ASSISTING WITH PLACEMENT. THERE ARE CURRENTLY NO BEDS AT THIS TIME.
[2017-12-22 04:00] VITALS: BP 164/89
[2017-12-22] MEDS: traMADol 50 MG TAB PO PRN ×3 (05:10→16:02)
--- NOTE | 2017-12-22 07:13 | NUR ---
REPORT GIVEN TO MORNING RN FOR CONTINUITY OF CARE. PT IN STABLE CONDITION AT THIS TIME.
--- NOTE | 2017-12-22 07:35 | NUR ---
RECEIVED REPORT FROM [facility] NURSE. AFEBRILE. NO SIGNS OF ACUTE DISTRESS. PEDAL PULSES PRESENT BUE/BLE. ON CONTINUOUS MONITORING. BED IN LOWEST POSTION. SIDE RAILS UP 2X. CALL LIGHT WITHIN REACH. WILL CONTINUE TO MONITOR.
[2017-12-22 08:00] VITALS: BP 132/78
[2017-12-22] MEDS: chlordiazePOXIDE 25 MG CAP PO SCH ×3 (08:59→16:02)
--- NOTE | 2017-12-22 09:48 | NUR ---
DR. SILVERIO IN TO SEE PATIENT, UPDATED ON PATIENT'S CONDITION. WILL FOLLOW UP ON ANY ORDERS.
[2017-12-22] MEDS: NAPROXEN 500 MG TAB PO SCH ×2 (10:30→20:22)
--- NOTE | 2017-12-22 10:49 | NUR ---
Called [facility] and spoke with Jose. No beds. Called [facility] and spoke Aislinn. No beds. Called [facility] and spoke with Delbert ESCALONA. No beds. Called [facility] and spoke with Carol. No beds, possible discharges later today. Called [facility] and spoke with Rhoda. No beds. Called [facility] and spoke with Yajaira. No beds. Called [facility] and spoke with Becki. No beds.
[2017-12-22 12:00] VITALS: BP 184/85
[2017-12-22] MEDS: NICOTINE TRANSD SYS 21 MG/24 HR PATCH TD SCH (14:00)
--- NOTE | 2017-12-22 14:49 | NUR ---
PATIENT HAS BEEN SCREENED AND CATEGORIZED LOW NUTRITION RISK. PATIENT WILL BE SEEN WITHIN 7 DAYS OF ADMISSION. 12/26/[address]
[2017-12-22 16:00] VITALS: BP 142/88
--- NOTE | 2017-12-22 16:01 | NUR ---
FAXED INITIAL REVIEW TO [facility] [place] [phone] PHONE CONCEPCION [phone].
--- NOTE | 2017-12-22 18:44 | NUR ---
THE [facility] IS AWARE OF PATIENT. WE WILL BE CALLING OUT TO ADDITIONAL FACILITIES SHORTLY AND SENDING AN UPDATE.
--- NOTE | 2017-12-22 19:08 | NUR ---
ENDORSED CARE TO NOC SHIFT. PATIENT IN STABLE CONDITION. NO SIGNS OF ACUTE DISTRESS. BED IN LOWEST POSITION. CALL LIGHT WITHIN REACH. SAFETY PRECAUTIONS OBSERVED.
--- NOTE | 2017-12-22 19:30 | NUR ---
RECEIVED PT FROM DAY NURSE. NO ACUTE DISTRESS. WILL CONTINUE TO OBSERVE.
--- NOTE | 2017-12-22 19:42 | NUR ---
PT AWAKE, ALERT ORIENTED X3. PT DENIES SUICIDAL IDEATION @ THIS TIME. PT ABLE TO MOVE ALL EXTREMITIES WELL, R ARM IN SPLINT AND IS FOLLOWING COMMANDS. PT DENIES NUMBNESS OR TINGLING TO R ARM. LUNGS CLEAR TO AUSCULTATION EVEN AND UNLABORED ON ROOM AIR; NORMAL HEART SOUNDS S1 S2, EDEMA TO R ARM NOTED. ABDOMEN SOFT NON DISTENDED, ACTIVE BOWEL SOUNDS. PT VOIDING IN BEDSIDE COMODE, ABLE TO AMBULATE WITH ASSIST. PERIPHERAL IV TO L HAND NOTED. NO OTHER ACUTE S/S OF DISTRESS NOTED. WILL CONTINUE TO OBSERVE.
[2017-12-22 20:00] VITALS: BP 155/75
--- NOTE | 2017-12-22 22:00 | NUR ---
PT ASLEEP IN BED, NO S/S OF ACUTE DISTRESS NOTED. WILL CONTINUE TO MONITOR.
[2017-12-23] VITALS: BP 154/77
[2017-12-23] MEDS: traMADol 50 MG TAB PO PRN ×2 (00:46→08:47)
[2017-12-23 03:54] VITALS: BP 157/74
[2017-12-23] MEDS: LORazepam 1 MG TAB PO PRN ×2 (06:08→07:56)
--- NOTE | 2017-12-23 07:15 | NUR ---
RECEIVED REPORT FROM DIRECTOR TELEHEALTH RN. PT SLEEPING IN BED, AROUSABLE. A/O X4. VERBAL. NO ACUTE RESPIRATORY DISTRESS. PUPILS REACTIVE TO LIGHT. SKIN DRY AND WARM TO TOUCH. LUNGS CLEAR ON AUSCULTATION. ABDOMEN SOFT, ROUND AND NON-TENDER. AVTIVE BOWEL SOUND. DENIES PAIN. DENIES ANY SUICIDAL IDEATION AT THIS TIME. SKIN INTACT. SCDS ON. KEPT HOB ELEVATED. BED IN LOW POSITION, LOCKED. WILL CONTINUE TO MONITOR.
[2017-12-23 08:00] VITALS: BP 174/68
--- NOTE | 2017-12-23 08:00 | NUR ---
KEPT PT ON BEDSIDE MONITOR. VS WITHIN NORMAL LIMITS.
--- NOTE | 2017-12-23 08:01 | NUR ---
PROVIDED BREAKFAST ASSISTED NEEDED. PT SITTING IN BED, EATING BREAKFAST AT THIS.
--- NOTE | 2017-12-23 08:16 | NUR ---
PT MAULIK BANDAGE ON HER RIGHT ARM. DENIES TINGLING AND NUMBNESS ON FINGERS. SWOLLEN FINGERS NOTED. ABLE TO MOVE FINGERS ON BOTH ARMS. LEFT HAND AC 22 G. WELL SALINE FLUSH. INTACT PERIPHERAL LINE.
[2017-12-23] MEDS: chlordiazePOXIDE 25 MG CAP PO SCH ×2 (08:55→12:45)
[2017-12-23] MEDS: NAPROXEN 500 MG TAB PO SCH (08:55)
[2017-12-23] MEDS ORDERED: LORazepam 1 MG TAB PO PRN (09:15)
--- NOTE | 2017-12-23 10:43 | NUR ---
PT SLEEPING IN BED COMFORTABLY, AROUSABLE. NO CHANGE IN LOC. NO ACUTE RESPIRATORY DISTRESS. WILL CONTINUE TO MONITOR.
--- NOTE | 2017-12-23 10:46 | NUR ---
DR. SILVERIO AT BEDSIDE EVALUATING PT.
[2017-12-23 12:00] VITALS: BP 156/89
--- NOTE | 2017-12-23 12:11 | NUR ---
METAL CASTER AT BEDSIDE. Addendum: 12/23/17 at 1252 by Blanquita Gardner RN WRONG CHARTING
--- NOTE | 2017-12-23 12:52 | NUR ---
SS AT BEDSIDE
--- NOTE | 2017-12-23 12:53 | NUR ---
PT SITTING IN BED. NO CHANGE IN LOC. NURSE AT BEDSIDE. WILL CONTINUE TO TRANSFER. Addendum: 12/23/17 at 1254 by Blanquita Gardner RN WRONG CHARTING
--- NOTE | 2017-12-23 12:54 | NUR ---
PT SITTING IN BED. NO CHANGE IN LOC. NURSE AT BEDSIDE. WILL CONTINUE TO MONITOR.
--- NOTE | 2017-12-23 13:22 | NUR ---
AT 1315 PT TRANSFERRED TO [place] VIA WHEELCHAIR. PT ON STABLE CONDITION. V/S WNL. REPORT GIVEN TO ASSIGNED NURSE. HANDED MEDICINES AND CHART.
[2017-12-23] MEDS: NICOTINE TRANSD SYS 21 MG/24 HR PATCH TD SCH (14:00)
--- NOTE | 2017-12-23 14:54 | NUR ---
FAXED REVIEW TO [facility] [phone] PHONE CONCEPCION [phone].
--- NOTE | 2017-12-23 15:04 | NUR ---
PATIENT WANTED TO LEAVE THE HOSPITAL. EXPLAINED TO THE PATIENT THAT SHE HAS NOT BEEN FORMALLY CLEARED BY THE PSYCH DOCTOR. PATIENT STATES THAT HER HOLD IS AND THAT SHE DOES NOT HAVE ANY SUICIDAL IDEATIONS ANYMORE. PATIENT WAS TOLD THAT THERE IS NO DISCHARGE ORDER AND WAS ADVISED TO STAY UNTIL CLEARED BY THE DR AND A DISCHARGE ORDER IS PLACED. PATIENT INSISTED ON LEAVING. IV LINE DISCONTINUED. PATIENT LEFT WITH ALL HER BELONGINGS.
== END 2017-12-23 15:00 | disposition left against medical advice (07) | DRG 351 ==
LOC: MED 01:32 → MIC 10:51 → MTU 12-23 13:15
PROVIDERS: ADMIT Hospitalist; ATTEND Hospitalist
DX: S63.91XA Sprain of unspecified part of right wrist and hand, initial encounter (principal); F33.3 Major depressive disorder, recurrent, severe with psychotic symptoms; D70.9 Neutropenia, unspecified; R45.851 Suicidal ideations; F10.129 Alcohol abuse with intoxication, unspecified; Y90.8 Blood alcohol level of 240 mg/100 ml or more; Z96.651 Presence of right artificial knee joint; F17.210 Nicotine dependence, cigarettes, uncomplicated; F12.90 Cannabis use, unspecified, uncomplicated; F14.90 Cocaine use, unspecified, uncomplicated; F41.1 Generalized anxiety disorder; W18.39XA Other fall on same level, initial encounter; Z59.0 Homelessness; Z88.6 Allergy status to analgesic agent; Z98.84 Bariatric surgery status; Y93.89 Activity, other specified; Y92.89 Other specified places as the place of occurrence of the external cause; Y99.8 Other external cause status; Z53.21 Procedure and treatment not carried out due to patient leaving prior to being seen by health care provider
CPT/HCPCS: 36415; 80053; 80305; 81025; 85025; 85610; 87081; 99285; A9153; G0480; G0482; J3411; J3490; J7030

== ENCOUNTER 2018-01-09 10:27 | Inpatient (IN) | payer OTHER ==
[~2018-01-09] VITALS: Ht 162.6 cm; Wt 81.6 kg
[2018-01-09 10:33] VITALS: BP 135/111
--- NOTE | 2018-01-09 10:38 | NUR ---
PT TRANSFERED TO ER BED 7 VIA EMS GURNEY.
--- NOTE | 2018-01-09 10:40 | NUR ---
PATIENT BIBA C/O N/V/D x 3 DAYS. EMS STATES PATIENT WAS NEAR A BUSINESS NEAR [address] [place] [address], WHEN BYSTANDERS CALLED 911 BECAUSE PT WAS COMPLAINING OF NAUSEA AND VOMITING. PT WAS GIVEN 4MG ZOFRAN IVP ON THE FIELD BY EMS. PT STATES SHE DRUNK VODACA LAST NIGHT, SHE IS DAILY ALCOHOLIC. SKIN IS PINK/WARM/DRY; RASHES TO INNER THIGH NOTED. LUNGS CLEAR BL; HR EVEN AND REGULAR; PT DENIES ANY FEVER, CP, SOB, OR COUGH AT THIS TIME; HX OF LEFT ARM INJURY NOTED, PAIN 5/10 WHEN PREFORM MOVEMENT, USE WALKER TO AMBULATE. VSS; PATIENT POSITIONED FOR COMFORT; HOB ELEVATED; BEDRAILS UP X2; BED DOWN. ER MD MADE AWARE OF PT STATUS.
--- NOTE | 2018-01-09 10:52 | NUR ---
Patient being evaluated by physician at bedside.
[2018-01-09] MEDS ORDERED: PANTOPRAZOLE 40 MG INJ VIAL IVP ONE (11:00)
[2018-01-09] MEDS ORDERED: LORazepam 2 MG/ML VIAL IVP ONE (11:00)
[2018-01-09] MEDS ORDERED: NACL 0.9% 1,000 ML IV ONE (11:00)
[2018-01-09 11:29] LABS: BASOPHILS % (AUTO) 1.5 % (0.0-2.0); HEMATOCRIT 33.3 % (36-48); HEMOGLOBIN 11.1 g/dL (12.0-16.0); LYMPHOCYTES # (AUTO) 0.5 K/uL (2.5-16.5); LYMPHOCYTES % (AUTO) 17.3 % (20.5-51.1); MEAN CORPUSCULAR HEMOGLOBIN 33 pg (27-31); MEAN CORPUSCULAR HGB CONC 33 g/dL (33-37); MEAN CORPUSCULAR VOLUME 98.7 fL (80-94); MONOCYTES # (AUTO) 0.2 K/uL (0.8-1.0); MONOCYTES % (AUTO) 7.3 % (1.7-9.3); NEUTROPHILS % (AUTO) 73.9 % (42.2-75.2); PLATELET COUNT (AUTO) 127 K/uL (140-450); RED BLOOD CELL COUNT(AUTO) 3.37 MIL/uL (4.20-5.40); RED CELL DISTRIBUTION WIDTH 18.7 % (11.6-13.7); WHITE BLOOD COUNT (AUTO) 2.7 K/uL (4.8-10.8)
[2018-01-09 11:39] LABS: ANION GAP 21.7 (8-16); CARBON DIOXIDE 21.8 mmol/L (21-32); CREATININE 0.8 mg/dL (0.6-1.3); POTASSIUM 3.5 mmol/L (3.5-5.1)
[2018-01-09 11:45] LABS: ALBUMIN 3.3 g/dL (3.4-5.0); TOTAL BILIRUBIN 1.4 mg/dL (0.0-1.0)
[2018-01-09 11:48] LABS: LIPASE 323 U/L (73-393)
--- NOTE | 2018-01-09 12:00 | NUR ---
PT IS RESTING IN BED, NO S/S OF DISTRESS, DENIES PAIN, VSS.
[2018-01-09] MEDS ORDERED: ACETAMINOPHEN 325 MG TAB PO PRN (12:45)
[2018-01-09 13:20] VITALS: BP 137/83
--- NOTE | 2018-01-09 13:20 | NUR ---
PATIENT ADMITTED TO THE UNIT FROM ER. PATIENT AWAKE, ALERT AND ORIENTED. NO S/S OF DISTRESS. PATIENT ON ROOM AIR NO SOB. NO ACTIVE VOMITING AT THIS TIME. PATIENT AMBULATES USING A WALKER. PATIENT REPORTS OF LEFT SHOULDER PAIN. WILL MEDICATE. IV LINE NOTED TO THE RIGHT HAND. BED LOWERED WITH CALL LIGHT WITHIN REACH. WILL CONTINUE TO MONITOR
--- NOTE | 2018-01-09 13:20 | NUR ---
Patient will be admitted to care of DR. LATIF. Admited to [facility]. Will go to room 105A. Belongings list completed. Report to NEFTALI CARTAGENA AT BEDSIDE.
[2018-01-09] MEDS: LORazepam 1 MG TAB PO SCH ×3 (13:37→20:58)
[2018-01-09] MEDS: DEXT 5% /NACL 0.9% 1,000 ML IV SCH ×2 (13:37→22:45)
[2018-01-09] MEDS: HYDROcodone/APAP 5/325 MG 1 TAB TAB PO PRN ×3 (13:37→23:30)
--- NOTE | 2018-01-09 15:42 | NUR ---
PATIENT ASLEEP IN BED. NO S/S OF DISTRESS NOTED
[2018-01-09 16:00] VITALS: BP 129/60
[2018-01-09] MEDS ORDERED: MULTIVITAMIN-12 10 ML, THIAMINE 100 MG, FOLIC ACID 1 MG, MAGNESIUM SULFATE 50% 2,000 MG... IV SCH ×5 (16:00)
[2018-01-09] MEDS ORDERED: PNEUMOCOCCAL VACCINE 23 MCG/0.5 ML VIAL IMVAC PRN (18:15)
--- NOTE | 2018-01-09 19:15 | NUR ---
PATIENT REPORT GIVEN AT BEDSIDE. PATIENT ENDORSED IN STABLE CONDITION
--- NOTE | 2018-01-09 19:16 | NUR ---
REPORT RECEIVED FROM AM NURSE. PT IN STABLE CONDITION. AAOX4. INTRODUCED SELF AND BOARD UPDATED. IV SITE PATENT AND INTACT. SKIN WARM, DRY, AND NOT INTACT DUE TO RASHES ON INNER THIGHS. BED LOCKED IN LOW POSITION. CALL BACA WITHIN REACH. WILL CONTINUE TO MONITOR.
--- NOTE | 2018-01-09 20:58 | NUR ---
PM MED GIVEN. PT TOLERATED WELL.
--- NOTE | 2018-01-09 22:20 | NUR ---
LAB SAID MRSA NARES WAS NOT COLLECTED. NEW SPECIMEN COLLECTED. EDUCATED PT TO URINATE IN [facility] FOR COLLECTION.
--- NOTE | 2018-01-09 23:30 | NUR ---
NORCO GIVEN FOR PAIN 7/10 ON PAIN SCALE. PT TOLERATED WELL. PT BACK TO SLEEP. WILL CONTINUE TO MONITOR.
[2018-01-10] VITALS: BP 117/68
[2018-01-10 00:29] LABS: APPEARANCE,URINE HAZY (CLEAR); BILIRUBIN,URINE 1+ (NEGATIVE); BLOOD, URINE NEGATIVE (NEGATIVE); COLOR,URINE YELLOW (YELLOW); LEUKOCYTE ESTERASE ,URINE NEGATIVE (NEGATIVE); NITRITE, URINE NEGATIVE (NEGATIVE); PH,URINE 6.5 (5.0-9.0); UGLUCOSE NEGATIVE (NEGATIVE)
[2018-01-10 00:37] LABS: BARBITURATE, URINE NEG. ng/ml (NEG <=200); BENZODIAZEPINE, URINE POS. ng/mL (NEG <=200); CANNABINOID, URINE NEG. ng/mL (NEG <=50); COCAINE, URINE NEG. ng/mL (NEG <=300); OPIATE, URINE NEG. ng/mL (NEG <=2000); PHENCYCLIDINE SCREEN,URINE NEG. ng/mL (NEG <=25)
[2018-01-10 00:38] LABS: RBC,URINE 0-5 (RARE) /HPF (0-5); WBC,URINE 0-5 (RARE) /HPF (0-5)
--- NOTE | 2018-01-10 01:15 | NUR ---
PT ASLEEP IN BED IN NO ACUTE DISTRESS. CHEST EXPANSION VISIBLE. WILL CONTINUE TO MONITOR.
[2018-01-10] MEDS: ONDANSETRON 4 MG/2 ML VIAL IVP PRN ×2 (03:28→13:25)
[2018-01-10] MEDS: LORazepam 2 MG/ML VIAL IVP PRN (03:28)
--- NOTE | 2018-01-10 03:28 | NUR ---
PT FEELING NAUSEOUS AND ANXIOUS. ZOFRAN AND ATIVAN GIVEN. PT TOLERATED WELL. BACK TO SLEEP AFTER MEDICATED.
--- NOTE | 2018-01-10 05:15 | NUR ---
PT ASLEEP SUPINE. PT NOT IN ANY ACUTE DISTRESS. CHEST EXPANSION VISIBLE. WILL CONTINUE TO MONITOR.
[2018-01-10] MEDS: HYDROcodone/APAP 5/325 MG 1 TAB TAB PO PRN ×3 (06:58→20:15)
[2018-01-10 07:08] LABS: BASOPHILS % (AUTO) 0.8 % (0.0-2.0); EOSINOPHILS % (AUTO) 1.5 % (0.0-4.0); HEMATOCRIT 31.8 % (36-48); HEMOGLOBIN 10.6 g/dL (12.0-16.0); LYMPHOCYTES # (AUTO) 0.6 K/uL (2.5-16.5); MEAN CORPUSCULAR HEMOGLOBIN 33 pg (27-31); MEAN CORPUSCULAR HGB CONC 33 g/dL (33-37); MEAN CORPUSCULAR VOLUME 98.7 fL (80-94); MONOCYTES # (AUTO) 0.1 K/uL (0.8-1.0); MONOCYTES % (AUTO) 6.5 % (1.7-9.3); NEUTROPHILS # (AUTO) 0.9 K/uL (1.8-7.7); NEUTROPHILS % (AUTO) 56.2 % (42.2-75.2); RED BLOOD CELL COUNT(AUTO) 3.22 MIL/uL (4.20-5.40); RED CELL DISTRIBUTION WIDTH 18.3 % (11.6-13.7)
--- NOTE | 2018-01-10 07:09 | NUR ---
REPORT GIVEN TO AM SHIFT. PT IN STABLE CONDITION.
--- NOTE | 2018-01-10 07:15 | NUR ---
RECEIVED PATIENT REPORT AT BEDSIDE. PATIENT ASLEEP BUT AROUSABLE. NO S/S OF DISTRESS, PATIENT ON ROOM AIR. IV LINE ON THE LEFT HAND INFILTRATED. IVF PUT ON HOLD. WILL INSERT NEW IV LINE. BED LOWERED WITH CALL LIGHT WITHIN REACH. WILL CONTINUE TO MONITOR
[2018-01-10 07:28] LABS: ALBUMIN 2.7 g/dL (3.4-5.0); ANION GAP 10.7 (8-16); CARBON DIOXIDE 30.2 mmol/L (21-32); CREATININE 0.9 mg/dL (0.6-1.3); MAGNESIUM 1.1 mg/dL (1.8-2.4); TOTAL BILIRUBIN 1.4 mg/dL (0.0-1.0)
[2018-01-10 07:29] LABS: POTASSIUM 2.9 mmol/L (3.5-5.1)
[2018-01-10 07:41] VITALS: BP 123/61
[2018-01-10 07:55] LABS: WHITE BLOOD COUNT (AUTO) 1.6 K/uL (4.8-10.8)
[2018-01-10 07:57] LABS: PLATELET COUNT (AUTO) 86 K/uL (140-450)
--- NOTE | 2018-01-10 08:29 | NUR ---
SPOKE TO DR LATIF AND INFORMED HIM ABOUT PATIENT'S WBC OF 1.6 AND POTASSIUM LEVEL OF 2.9. ORDERS 40MEQ POTASSIUM PO
[2018-01-10] MEDS: DEXT 5% /NACL 0.9% 1,000 ML IV SCH ×2 (08:45→15:55)
[2018-01-10] MEDS ORDERED: POTASSIUM CHLORIDE 10 MEQ TABER PO SCH (08:51)
[2018-01-10] MEDS: LORazepam 1 MG TAB PO SCH ×5 (09:32→20:15)
--- NOTE | 2018-01-10 09:51 | NUR ---
PATIENT HAS BEEN SCREENED AND CATEGORIZED MODERATE NUTRITION RISK. PATIENT WILL BE SEEN WITHIN 3-5 DAYS OF ADMISSION. 01/12/18-01/14/[address]
[2018-01-10] MEDS ORDERED: MULTIVITAMIN 1 TAB PO SCH (10:17)
[2018-01-10] MEDS ORDERED: THIAMINE 100 MG TAB PO SCH (10:17)
[2018-01-10] MEDS ORDERED: MAG SULF 2000 MG/WATER PREMIX 50 ML IV ONE (11:00)
[2018-01-10] MEDS: MISC INJECTION 1 EA in DEXTROSE 5% 100 ML IV SCH ×2 (11:45→13:19)
--- NOTE | 2018-01-10 12:13 | NUR ---
PATIENT EATING LUNCH. NO S/S OF DISTRESS
[2018-01-10 16:00] VITALS: BP 118/75
--- NOTE | 2018-01-10 19:25 | NUR ---
PATIENT REPORT GIVEN AT BEDSIDE. PATIENT ENDORSED IN STABLE CONDITION
--- NOTE | 2018-01-10 19:26 | NUR ---
REPORT RECEIVED FROM AM SHIFT. PT IN STABLE CONDITION. AAOX4. BOARD UPDATED. IV SITE PATENT AND INTACT. SKIN WARM, DRY, AND INTACT WITH NO OPEN WOUNDS BUT RASH ON THE INNER THIGHS. BED LOCKED IN LOW POSITION. CALL BACA WITHIN REACH.
--- NOTE | 2018-01-10 20:15 | NUR ---
PM MEDS GIVEN. NORCO ALSO GIVEN FOR PAIN 12/14. PT TOLERATED WELL. WILL CONTINUE TO MONITOR.
[2018-01-10] MEDS: POTASSIUM CHLORIDE 10 MEQ TABER PO SCH (20:19)
--- NOTE | 2018-01-10 21:00 | NUR ---
PT BACK FROM BATHROOM. IV LINE REINSERTED FOR FLUID RESUSCITATION. PT LAYING IN BED SUPINE COMFORTABLY.
--- NOTE | 2018-01-10 23:00 | NUR ---
PT ASKING FOR PAIN MEDS BUT JUST RECEIVED THEM AT 2015. INFORMED PT ABOUT MEDICATION SCHEDULED.
[2018-01-11] VITALS: BP 121/76
[2018-01-11] MEDS: HYDROcodone/APAP 5/325 MG 1 TAB TAB PO PRN ×4 (01:04→21:49)
--- NOTE | 2018-01-11 01:04 | NUR ---
NORCO AND ATIVAN GIVEN. PT TOLERATED WELL.
[2018-01-11] MEDS: LORazepam 2 MG/ML VIAL IVP PRN (01:05)
--- NOTE | 2018-01-11 04:45 | NUR ---
PT ASLEEP. NOT IN ANY ACUTE DISTRESS.
[2018-01-11 07:04] LABS: HEMOGLOBIN 10.2 g/dL (12.0-16.0); MEAN CORPUSCULAR HEMOGLOBIN 33 pg (27-31); MEAN CORPUSCULAR HGB CONC 33 g/dL (33-37); MEAN CORPUSCULAR VOLUME 99.5 fL (80-94); PLATELET COUNT (AUTO) 62 K/uL (140-450); RED BLOOD CELL COUNT(AUTO) 3.11 MIL/uL (4.20-5.40); RED CELL DISTRIBUTION WIDTH 18.1 % (11.6-13.7)
--- NOTE | 2018-01-11 07:05 | NUR ---
REPORT GIVEN TO AM NURSE. PT IN STABLE CONDITION.
[2018-01-11 07:11] LABS: ALBUMIN 2.8 g/dL (3.4-5.0); ANION GAP 9.7 (8-16); CARBON DIOXIDE 29.7 mmol/L (21-32); CREATININE 0.7 mg/dL (0.6-1.3); MAGNESIUM 1.1 mg/dL (1.8-2.4); POTASSIUM 3.4 mmol/L (3.5-5.1); TOTAL BILIRUBIN 0.6 mg/dL (0.0-1.0)
--- NOTE | 2018-01-11 07:15 | NUR ---
RECEIVED PATIENT REPORT AT BEDSIDE. PATIENT ASLEEP BUT AROUSABLE. NO S/S OF DISTRESS, PATIENT ON ROOM AIR. IV LINE NOTED ON THE RIGHT WRIST INTACT AND ASYMPTOMATIC WITH IVF INFUSING WELL. BED LOWERED WITH CALL LIGHT WITHIN REACH. WILL CONTINUE TO MONITOR
[2018-01-11 07:27] LABS: WHITE BLOOD COUNT (AUTO) 1.7 K/uL (4.8-10.8)
[2018-01-11 07:37] VITALS: BP 138/85
[2018-01-11 07:46] LABS: BASOPHILS % (MANUAL) 0 % (0-2); EOSINOPHILS % (MANUAL) 2 % (0-4); LYMPHOCYTES % (MANUAL) 43 % (20-46); MONOCYTES % (MANUAL) 3 % (5-12)
[2018-01-11] MEDS: POTASSIUM CHLORIDE 10 MEQ TABER PO SCH ×2 (08:21→21:49)
[2018-01-11] MEDS: MULTIVITAMIN 1 TAB PO SCH (08:21)
[2018-01-11] MEDS: THIAMINE 100 MG TAB PO SCH (08:22)
[2018-01-11] MEDS: FOLIC ACID 1 MG TAB PO SCH (08:22)
[2018-01-11] MEDS: DEXT 5% /NACL 0.9% 1,000 ML IV SCH (08:23)
[2018-01-11] MEDS: LORazepam 1 MG TAB PO SCH ×4 (08:23→21:49)
[2018-01-11] MEDS ORDERED: MAG SULF 2000 MG/WATER PREMIX 50 ML IV ONE (09:00)
[2018-01-11] MEDS ORDERED: POTASSIUM CHLORIDE 10 MEQ TABER PO SCH (09:00)
[2018-01-11] MEDS: MISC INJECTION 1 EA in DEXTROSE 5% 100 ML IV SCH ×2 (10:51→12:51)
[2018-01-11] MEDS: MAGNESIUM CHLORIDE 64 MG TABEC PO SCH (10:51)
--- NOTE | 2018-01-11 11:30 | NUR ---
PATIENT AMBULATED USING HER WALKER TO THE BATHROOM. NO S/S OF DISTRESS NOTED
--- NOTE | 2018-01-11 13:00 | NUR ---
PATIENT GIVEN TOWELS AND WAS OFFERED SHOWER OR BED BATH. PATIENT STATES SHE WILL DO IT LATER
[2018-01-11 16:00] VITALS: BP 126/84
--- NOTE | 2018-01-11 16:40 | NUR ---
PATIENT AWAKE IN BED, WATCHING TELEVISION. NO S/S OF DISTRESS NOTED
--- NOTE | 2018-01-11 19:25 | NUR ---
PATIENT REPORT GIVEN AT BEDSIDE. PATIENT ENDORSED IN STABLE CONDITION
--- NOTE | 2018-01-11 19:26 | NUR ---
REPORT RECEIVED FROM AM SHIFT AT BEDSIDE. PT IN STABLE CONDITION. AAOX4. INTRODUCED SELF AND BOARD UPDATED. PT STATES PAIN BUT JUST RECEIVED NORCO AT 1814. WILL MEDICATE WHEN MEDICATION IS DUE. IV SITE PATENT AND INTACT. SKIN WARM, DRY, AND NOT INTACT DUE TO RASHES ON THE INNER THIGHS. BED LOCKED IN LOW POSITION. CALL BACA WITHIN REACH.
--- NOTE | 2018-01-11 21:50 | NUR ---
PM MEDS GIVEN. NORCO GIVEN. PT TOLERATED WELL. PT ALSO WANTED A SNACK. CHOCOLATE PUDDING GIVEN.
--- NOTE | 2018-01-11 22:50 | NUR ---
PT IV DC TO USE THE RESTROOM. RECONNECT UPON RETURN.
[2018-01-12] VITALS: BP 123/77
[2018-01-12] MEDS: DEXT 5% /NACL 0.9% 1,000 ML IV SCH ×2 (00:25→20:23)
--- NOTE | 2018-01-12 01:00 | NUR ---
PT ASLEEP WITH NO S/S OF DISTRESS.
[2018-01-12] MEDS: LORazepam 2 MG/ML VIAL IVP PRN (01:23)
[2018-01-12] MEDS: HYDROcodone/APAP 5/325 MG 1 TAB TAB PO PRN ×4 (02:28→21:31)
--- NOTE | 2018-01-12 02:30 | NUR ---
NORCO GIVEN. PT TOLERATED WELL.
--- NOTE | 2018-01-12 04:30 | NUR ---
PT UP TO USE RESTROOM. AMBULATES TO RESTROOM WITH WALKER. NO S/S OF DISTRESS.
--- NOTE | 2018-01-12 07:00 | NUR ---
REPORT GIVEN TO AM NURSE AT BEDSIDE. PT IN STABLE CONDITION.
--- NOTE | 2018-01-12 07:01 | NUR ---
RECEIVED REPORT FROM SPRAY GUN STRIPER RN. PATIENT IS SLEEPING BUT AROUSABLE TO NAME. HAS NO SIGNS AND SYMPTOMS OF ACUTE DISTRESS NOTED AT THIS TIME. HAS IV TO THE RIGHT FA 22G, INFUSING D5NS AT 75ML/HR. SITE IS CLEAN, DRY, PATENT AND INTACT. PATIENT HAS WALKER NEARBY. DISCUSSED PLAN OF CARE WITH PATIENT AND SHE VERBALIZED UNDERSTANDING. BED IN LOWEST POSITION, SIDE RAILS UP X2, CALL LIGHT WITHIN REACH. WILL CONTINUE TO MONITOR.
[2018-01-12 07:19] LABS: HEMATOCRIT 31.9 % (36-48); HEMOGLOBIN 10.7 g/dL (12.0-16.0); MEAN CORPUSCULAR HEMOGLOBIN 34 pg (27-31); MEAN CORPUSCULAR HGB CONC 34 g/dL (33-37); MEAN CORPUSCULAR VOLUME 99.9 fL (80-94); PLATELET COUNT (AUTO) 68 K/uL (140-450); RED CELL DISTRIBUTION WIDTH 18.7 % (11.6-13.7); WHITE BLOOD COUNT (AUTO) 2.2 K/uL (4.8-10.8)
[2018-01-12 07:51] LABS: EOSINOPHILS % (MANUAL) 6 % (0-4); LYMPHOCYTES % (MANUAL) 43 % (20-46); MONOCYTES % (MANUAL) 4 % (5-12)
[2018-01-12 08:00] VITALS: BP 130/95
[2018-01-12 08:06] LABS: ALBUMIN 2.8 g/dL (3.4-5.0); CARBON DIOXIDE 31.8 mmol/L (21-32); CREATININE 0.7 mg/dL (0.6-1.3); MAGNESIUM 1.2 mg/dL (1.8-2.4); POTASSIUM 3.8 mmol/L (3.5-5.1); TOTAL BILIRUBIN 0.5 mg/dL (0.0-1.0)
[2018-01-12] MEDS ORDERED: MAG SULF 2000 MG/WATER PREMIX 50 ML IV ONE (08:25)
[2018-01-12] MEDS: MAGNESIUM CHLORIDE 64 MG TABEC PO SCH (08:52)
[2018-01-12] MEDS: ONDANSETRON 4 MG/2 ML VIAL IVP PRN (08:52)
[2018-01-12] MEDS: LORazepam 1 MG TAB PO SCH ×4 (08:52→20:23)
[2018-01-12] MEDS: FOLIC ACID 1 MG TAB PO SCH (08:52)
[2018-01-12] MEDS: MULTIVITAMIN 1 TAB PO SCH (08:52)
[2018-01-12] MEDS: THIAMINE 100 MG TAB PO SCH (08:53)
--- NOTE | 2018-01-12 09:45 | NUR ---
MADE DR LATIF AWARE OF PATIENTS BACTERIA IN URINE. HE STATED THAT IT WAS OKAY. NO NEW ORDERS AT THIS TIME. WILL CONTINUE TO MONITOR PATIENT.
--- NOTE | 2018-01-12 09:50 | NUR ---
PATIENT RELAXING IN BED.
[2018-01-12] MEDS: MAGNESIUM SULFATE 1GM in DEXTROSE 5% 100 ML PREMIX IV SCH ×2 (10:13→12:52)
--- NOTE | 2018-01-12 10:59 | NUR ---
ARIN ROTHMAN. PATIENT TOLERATING WELL.
--- NOTE | 2018-01-12 12:52 | NUR ---
ADMINISTERED 2ND BAG OF MAG RIDER
--- NOTE | 2018-01-12 15:17 | NUR ---
Clinical review faxed to [facility] [phone]
[2018-01-12 16:00] VITALS: BP 123/78
--- NOTE | 2018-01-12 19:15 | NUR ---
ENDORSED PATIENT TO SETTLEMENT WORKER RN FOR CONTINUITY OF CARE. PATIENT IN STABLE CONDITION.
--- NOTE | 2018-01-12 19:16 | NUR ---
RECEIVED BEDSIDE REPORT FROM DAY SHIFT NURSE NIALL RN, PT STABLE, NO DISTRESS NOTED, IV TO R FA 22G RUNNING D5NS @ 75ML/HR PATENT, INTACT, INFUSING WELL, PT ON ROOM AIR NO SOB, PT STATED PAIN TOLERABLE AT THIS MOMENT, INITIAL ASSESSMENT DONE, ALL SAFETY PRECAUTION MET, WILL CONTINUE TO MONITOR.
--- NOTE | 2018-01-12 20:23 | NUR ---
DUE MEDICATION ADMINISTERED PT TOLERATED WELL, NO DISTRESS NOTED, CALL LIGHT WITHIN REACH, WILL CONTINUE TO MONITOR.
--- NOTE | 2018-01-12 21:31 | NUR ---
PT STATED FEELING PAIN 6/10 ON THE LEFT ARM, PAIN MEDICATION GIVEN, PT TOLERATED WELL, NO DISTRESS NOTED, CALL LIGHT WITHIN REACH, WILL CONTINUE TO MONITOR.
--- NOTE | 2018-01-12 22:30 | NUR ---
CHECKED ON PT, PT SLEEPING, NO DISTRESS NOTED, CALL LIGHT WITHIN REACH, WILL CONTINUE TO MONITOR.
[2018-01-13] VITALS: BP 135/84
--- NOTE | 2018-01-13 00:01 | NUR ---
PT AMBULATED TO RESTROOM AND BACK TO BED, V/S TAKEN, WNL, PT STABLE, NO DISTRESS NOTED, CALL LIGHT WITHIN REACH, WILL CONTINUE TO MONITOR.
--- NOTE | 2018-01-13 00:20 | NUR ---
PT STATED DOES NOT WANT TO BE HOOKED UP TO IVF BECAUSE IT IS HARD FOR HER TO GO TO THE RESTROOM, PT STABLE, NO DISTRESS NOTED, WILL CONTINUE TO MONITOR.
--- NOTE | 2018-01-13 02:10 | NUR ---
CHECKED ON PT, PT SLEEPING, NO DISTRESS NOTED, CALL LIGHT WITHIN REACH, WILL CONTINUE TO MONITOR.
[2018-01-13] MEDS: DEXT 5% /NACL 0.9% 1,000 ML IV SCH (03:05)
[2018-01-13] MEDS: LORazepam 2 MG/ML VIAL IVP PRN (04:30)
[2018-01-13] MEDS: HYDROcodone/APAP 5/325 MG 1 TAB TAB PO PRN ×2 (04:30→09:07)
--- NOTE | 2018-01-13 04:30 | NUR ---
PT STATED FEELING PAIN, 12/14, PAIN MEDICATION GIVEN, PT ALSO STATED THAT SHE IS FEELING ANXIOUS AND RESTLESS AND SHE REQUESTED TO HAVE HER ATIVAN, ATIVAN PER MD ORDER GIVEN, PT TOLERATED WELL, NO DISTRESS NOTED, CALL LIGHT WITHIN REACH, WILL CONTINUE TO MONITOR.
--- NOTE | 2018-01-13 06:10 | NUR ---
CHECKED ON PT, PT SLEEPING, NO DISTRESS NOTED, CALL LIGHT WITHIN REACH, WILL CONTINUE TO MONITOR.
[2018-01-13 07:13] LABS: BASOPHILS % (AUTO) 0.9 % (0.0-2.0); EOSINOPHILS # (AUTO) 0.1 K/uL (0-0.4); EOSINOPHILS % (AUTO) 3.4 % (0.0-4.0); LYMPHOCYTES # (AUTO) 0.8 K/uL (2.5-16.5); MONOCYTES # (AUTO) 0.2 K/uL (0.8-1.0); MONOCYTES % (AUTO) 8.5 % (1.7-9.3); NEUTROPHILS # (AUTO) 1.2 K/uL (1.8-7.7); WHITE BLOOD COUNT (AUTO) 2.2 K/uL (4.8-10.8)
--- NOTE | 2018-01-13 07:14 | NUR ---
ENDORSED PATIENT TO DAY SHIFT NURSE NIALL RN, PT STABLE, NO DISTRESS NOTED, CALL LIGHT WITHIN REACH.
--- NOTE | 2018-01-13 07:15 | NUR ---
RECEIVED REPORT FROM CONTROLLER COAL OR ORE RN. PATIENT IS AAOX3. HAS NO SIGNS AND SYMPTOMS OF ACUTE DISTRESS NOTED AT THIS TIME. HAS IV TO THE RIGHT FA 22G, INFUSING D5NS AT 75ML/HR. SITE IS CLEAN, DRY, PATENT AND INTACT. PATIENT HAS WALKER NEARBY. DISCUSSED PLAN OF CARE WITH PATIENT AND SHE VERBALIZED UNDERSTANDING. BED IN LOWEST POSITION, SIDE RAILS UP X2, CALL LIGHT WITHIN REACH. WILL CONTINUE TO MONITOR.
[2018-01-13 07:25] LABS: HEMATOCRIT 31.1 % (36-48); HEMOGLOBIN 10.3 g/dL (12.0-16.0); LYMPHOCYTES % (AUTO) 34.1 % (20.5-51.1); MEAN CORPUSCULAR HEMOGLOBIN 33 pg (27-31); MEAN CORPUSCULAR HGB CONC 33 g/dL (33-37); MEAN CORPUSCULAR VOLUME 99.4 fL (80-94); NEUTROPHILS % (AUTO) 53.1 % (42.2-75.2); PLATELET COUNT (AUTO) 75 K/uL (140-450); RED BLOOD CELL COUNT(AUTO) 3.13 MIL/uL (4.20-5.40); RED CELL DISTRIBUTION WIDTH 18.5 % (11.6-13.7)
[2018-01-13 07:31] LABS: ALBUMIN 2.8 g/dL (3.4-5.0); ANION GAP 11.3 (8-16); CARBON DIOXIDE 29.5 mmol/L (21-32); CREATININE 0.7 mg/dL (0.6-1.3); MAGNESIUM 1.5 mg/dL (1.8-2.4); POTASSIUM 3.8 mmol/L (3.5-5.1); TOTAL BILIRUBIN 0.4 mg/dL (0.0-1.0)
[2018-01-13 08:00] VITALS: BP 132/91
[2018-01-13 08:17] LABS: FOLIC ACID 9.8 ng/mL (>3.0)
[2018-01-13] MEDS: LORazepam 1 MG TAB PO SCH ×2 (09:05→13:23)
[2018-01-13] MEDS: MAGNESIUM CHLORIDE 64 MG TABEC PO SCH (09:06)
[2018-01-13] MEDS: FOLIC ACID 1 MG TAB PO SCH (09:06)
[2018-01-13] MEDS: MULTIVITAMIN 1 TAB PO SCH (09:06)
[2018-01-13] MEDS: THIAMINE 100 MG TAB PO SCH (09:07)
[2018-01-13] MEDS ORDERED: MAG SULF 2000 MG/WATER PREMIX 50 ML IV ONE (09:30)
[2018-01-13] MEDS: MAGNESIUM SULFATE 1GM in DEXTROSE 5% 100 ML PREMIX IV SCH ×2 (10:53→12:21)
--- NOTE | 2018-01-13 13:45 | NUR ---
DISCHARGE ORDER IS IN PLACE. GAVE PATIENT A BUS PASS. GAVE PATIENT INSTRUCTIONS TO FOLLOW UP WITH PRIMARY CARE DOCTOR. REMOVED IV FROM SITE. CATHETER INTACT. PATIENT HAS NO SIGNS AND SYMPTOMS OF ACUTE DISTRESS NOTED AT THIS TIME. ALL BELONGINGS ARE WITH PATIENT, SHE HAS HER OWN WALKER. ID BANDS REMOVED. WILL WALK OUT WITH PATIENT.
--- NOTE | 2018-01-13 15:47 | NUR ---
CLINICAL UPDATE FAXED TO [facility] [phone]
== END 2018-01-13 13:45 | disposition home or self-care (01) | DRG 425 ==
LOC: MED 10:27 → MTU 12:49
PROVIDERS: ADMIT Internal Medicine; ATTEND Internal Medicine
DX: E87.6 Hypokalemia (principal); D61.818 Other pancytopenia; E44.1 Mild protein-calorie malnutrition; E83.42 Hypomagnesemia; F10.239 Alcohol dependence with withdrawal, unspecified; F41.9 Anxiety disorder, unspecified; F17.210 Nicotine dependence, cigarettes, uncomplicated; E87.1 Hypo-osmolality and hyponatremia; F31.9 Bipolar disorder, unspecified; Z68.30 Body mass index [BMI] 30.0-30.9, adult; Z88.6 Allergy status to analgesic agent; S42.302D Unspecified fracture of shaft of humerus, left arm, subsequent encounter for fracture with routine healing; Z79.899 Other long term (current) drug therapy; Z98.84 Bariatric surgery status; Z59.0 Homelessness
CPT/HCPCS: 36415; 71045; 80053; 80305; 81001; 82607; 82746; 83690; 83735; 83880; 84484; 85025; 87081; 87086; 93005; 96361; 96374; 96375; 99285; A9153; C9113; G0482; J2060; J2405; J3411; J3475; J3490; J7042; J7060; Q0092

== ENCOUNTER 2018-02-11 12:30 | Inpatient (IN) | payer OTHER ==
[~2018-02-11] VITALS: Ht 162.6 cm; Wt 77.1 kg
[2018-02-11 12:33] VITALS: BP 158/107
--- NOTE | 2018-02-11 12:40 | NUR ---
AMBULATES WITH SLOW STEADY GAIT TO BED 3
--- NOTE | 2018-02-11 12:48 | NUR ---
BIBA FOR ETOH WITHDRAWAL, REQUESTING TO DETOX. LAST DRINK THIS MORNING (vodka). WAS PICKED UP FROM [facility] TO [facility]OX FROM ETOH BUT DID NOT REGISTER. REPORTS LEFT SHOULDER PAIN WITH H/O CHRONIC LEFT SHOULDER PAIN FROM FRACTURE 8 MONTHS AGO, DENIES RE INJURY. PT AAOX3, MILD TREMORS NOTED TO RIP HANDS. DENIES ANY SOB OR CP. HX: ETOH ABUSE, DEPRESSION, ANXIETY
[2018-02-11] MEDS ORDERED: NACL 0.9% 1,000 ML IV ONE (13:25)
[2018-02-11] MEDS ORDERED: LORazepam 2 MG/ML VIAL IVP ONE (13:25)
[2018-02-11] MEDS ORDERED: ONDANSETRON 4 MG/2 ML VIAL IVP ONE (13:25)
--- NOTE | 2018-02-11 14:03 | NUR ---
IV FLUIDS INFUSING WELL, PT WITH NO COMPLAINTS AT THIS TIME. VSS.
[2018-02-11 14:16] LABS: BASOPHILS # (AUTO) 0.1 K/uL (0.00-0.22); BASOPHILS % (AUTO) 1.5 % (0.0-2.0); EOSINOPHILS % (AUTO) 0.2 % (0.0-4.0); HEMATOCRIT 31.3 % (36-48); HEMOGLOBIN 10.5 g/dL (12.0-16.0); LYMPHOCYTES # (AUTO) 0.6 K/uL (2.5-16.5); LYMPHOCYTES % (AUTO) 15.2 % (20.5-51.1); MEAN CORPUSCULAR HEMOGLOBIN 33 pg (27-31); MEAN CORPUSCULAR HGB CONC 34 g/dL (33-37); MEAN CORPUSCULAR VOLUME 98.4 fL (80-94); MONOCYTES # (AUTO) 0.2 K/uL (0.8-1.0); MONOCYTES % (AUTO) 4.5 % (1.7-9.3); NEUTROPHILS # (AUTO) 3.1 K/uL (1.8-7.7); NEUTROPHILS % (AUTO) 78.6 % (42.2-75.2); PLATELET COUNT (AUTO) 106 K/uL (140-450); RED BLOOD CELL COUNT(AUTO) 3.18 MIL/uL (4.20-5.40); RED CELL DISTRIBUTION WIDTH 17.2 % (11.6-13.7)
--- NOTE | 2018-02-11 14:29 | NUR ---
PT REPORTS MILD RELIEF OF TREMORS WITH MEDICATION. WATER AND SNACKS PROVIDED. PT DENIES ANY PAIN.
[2018-02-11 14:36] LABS: PROTHROMBIN TIME 10.8 secs (10.8-13.4)
[2018-02-11 14:40] LABS: ANION GAP 14.9 (8-16); CARBON DIOXIDE 25.9 mmol/L (21-32); CREATININE 0.6 mg/dL (0.6-1.3); POTASSIUM 3.8 mmol/L (3.5-5.1)
[2018-02-11 14:47] LABS: ALBUMIN 3.3 g/dL (3.4-5.0); TOTAL BILIRUBIN 1.4 mg/dL (0.0-1.0)
[2018-02-11] MEDS ORDERED: ACETAMINOPHEN 325 MG TAB PO PRN (15:55)
[2018-02-11] MEDS ORDERED: MULTIVITAMIN-12 10 ML, THIAMINE 100 MG, MAGNESIUM SULFATE 50% 2,000 MG, FOLIC ACID 5 MG... IV ONE ×5 (15:55)
[2018-02-11] MEDS ORDERED: LORazepam 2 MG/ML VIAL IVP PRN (15:55)
[2018-02-11] MEDS ORDERED: ONDANSETRON 4 MG/2 ML VIAL IVP PRN (15:55)
--- NOTE | 2018-02-11 16:15 | NUR ---
Patient will be admitted to care of DR AGUAYO. Admited to TELE. Will go to room. Belongings list completed. Report to ZIGGY LINDSAY .
--- NOTE | 2018-02-11 17:58 | NUR ---
BANANA BAG STILL UNAVAILABLE ON UNIT. CALLED PHARMACY. ZOO DIRECTOR STATES THAT PHARMACIST STILL HAS TO SIGN OFF ON IT AND IT WILL BE SENT TO THE FLOOR SOON.
[2018-02-11 18:00] VITALS: BP 141/72
--- NOTE | 2018-02-11 18:00 | NUR ---
RECEIVED PT FROM ED. PT IN STABLE CONDITION. WALKING WITH STEADY GAIT. SKIN INTACT. AAO X 3. COMPLAINING OF 5/10 PAIN IN LEFT SHOULDER. LUNGS CTA. HEART RHYTHM IS REGULAR. IV SITE PATENT AND ASYMPTOMATIC. FALL RISK PROTOCOL INITIATED. WILL CONTINUE TO MONITOR.
[2018-02-11] MEDS: MORPHINE SULFATE 2 MG/ML SYR IVP PRN ×2 (18:03→22:25)
--- NOTE | 2018-02-11 19:30 | NUR ---
ENDORSED PLAN OF CARE TO DINKEY LOCOMOTIVE ENGINEER RN. PT IN STABLE CONDITION.
--- NOTE | 2018-02-11 19:31 | NUR ---
RECEIVED REPORT FROM DAYSHIFT NURSE AT BEDSIDE FOR CONTINUITY OF CARE. PT AAOX4. PT IV LEFT WRIST 22G BANANA BAG AT 250ML/HR. PT IS ON BEDREST. BEDSIDE COMMODE. NO SOB NO S/S OF DISTRESS ON RA. BED LOWERED CALL LIGHT WITHIN REACH WILL CONTINUE TO MONITOR.
[2018-02-11 20:00] VITALS: BP 124/76
--- NOTE | 2018-02-11 22:05 | NUR ---
ADMIN PAIN MED 1HR AGO. PAIN MED EFFECTIVE. PT IS SLEEPING. NO SOB NO S/S OF DISTRESS WILL CONTINUE TO MONITOR.
--- NOTE | 2018-02-11 23:07 | NUR ---
URINE SPECIMENT COLLECTED. WILL SEND TO LAB.
[2018-02-12] VITALS: BP 133/66
[2018-02-12 00:04] LABS: BARBITURATE, URINE NEG. ng/ml (NEG <=200); BENZODIAZEPINE, URINE NEG. ng/mL (NEG <=200); CANNABINOID, URINE NEG. ng/mL (NEG <=50); COCAINE, URINE NEG. ng/mL (NEG <=300); OPIATE, URINE NEG. ng/mL (NEG <=2000); PHENCYCLIDINE SCREEN,URINE NEG. ng/mL (NEG <=25)
[2018-02-12 00:06] LABS: BILIRUBIN,URINE NEGATIVE (NEGATIVE); BLOOD, URINE NEGATIVE (NEGATIVE); LEUKOCYTE ESTERASE ,URINE NEGATIVE (NEGATIVE); NITRITE, URINE NEGATIVE (NEGATIVE); PH,URINE 5.5 (5.0-9.0); UGLUCOSE NEGATIVE (NEGATIVE)
[2018-02-12 00:08] LABS: APPEARANCE,URINE CLEAR (CLEAR); COLOR,URINE YELLOW (YELLOW)
[2018-02-12] MEDS: MORPHINE SULFATE 2 MG/ML SYR IVP PRN ×2 (03:32→08:50)
[2018-02-12 04:00] VITALS: BP 127/72
--- NOTE | 2018-02-12 04:32 | NUR ---
ADMIN PAIN MED 1HR AGO. PAIN MED EFFECTIVE. PT IS SLEEPING. NO SOB NO S/S OF DISTRESS WILL CONTINUE TO MONITOR.
--- NOTE | 2018-02-12 06:32 | NUR ---
ADMIN PAIN MED 1HR AGO. PAIN MED EFFECTIVE. PT IS SLEEPING. NO SOB NO S/S OF DISTRESS WILL CONTINUE TO MONITOR.
--- NOTE | 2018-02-12 07:16 | NUR ---
ENDORSED PLAN OF CARE TO DAYSHIFT NURSE FOR CONTINUITY OF CARE.
--- NOTE | 2018-02-12 07:20 | NUR ---
RECEIVED REPORT FROM COUNTER WEIGHER RN AT BEDSIDE FOR CONTINUITY OF CARE. PT AAOX4. NO COMPLAINTS OF PAIN OR DISCOMFORT. IV SITE PATENT AND ASYMPTOMATIC. NO FLUIDS RUNNING. PT IS ON BEDREST WITH COMMODE AT BEDSIDE. NO SOB, NO S/S OF DISTRESS ON RA. SKIN IS INTACT. ALL SAFETY PRECAUTIONS IN PLACE, WILL CONTINUE TO MONITOR.
[2018-02-12 07:36] LABS: BASOPHILS % (AUTO) 1.3 % (0.0-2.0); EOSINOPHILS # (AUTO) 0.1 K/uL (0-0.4); EOSINOPHILS % (AUTO) 2.9 % (0.0-4.0); HEMATOCRIT 30.6 % (36-48); HEMOGLOBIN 10.2 g/dL (12.0-16.0); LYMPHOCYTES # (AUTO) 0.8 K/uL (2.5-16.5); LYMPHOCYTES % (AUTO) 37.4 % (20.5-51.1); MEAN CORPUSCULAR HEMOGLOBIN 33 pg (27-31); MEAN CORPUSCULAR HGB CONC 33 g/dL (33-37); MEAN CORPUSCULAR VOLUME 99.6 fL (80-94); MONOCYTES # (AUTO) 0.1 K/uL (0.8-1.0); MONOCYTES % (AUTO) 6.9 % (1.7-9.3); NEUTROPHILS # (AUTO) 1.1 K/uL (1.8-7.7); NEUTROPHILS % (AUTO) 51.5 % (42.2-75.2); PLATELET COUNT (AUTO) 88 K/uL (140-450); RED BLOOD CELL COUNT(AUTO) 3.07 MIL/uL (4.20-5.40); RED CELL DISTRIBUTION WIDTH 17.7 % (11.6-13.7); WHITE BLOOD COUNT (AUTO) 2.1 K/uL (4.8-10.8)
[2018-02-12 07:50] LABS: ALBUMIN 2.6 g/dL (3.4-5.0); ANION GAP 10.8 (8-16); CARBON DIOXIDE 26.7 mmol/L (21-32); CREATININE 0.5 mg/dL (0.6-1.3); POTASSIUM 3.5 mmol/L (3.5-5.1); TOTAL BILIRUBIN 1.2 mg/dL (0.0-1.0)
[2018-02-12 08:00] VITALS: BP 120/71
--- NOTE | 2018-02-12 09:59 | NUR ---
PT SEEN AMBULATING WITH STEADY GAIT, WITHOUT ASSISTANCE, IN MST HALLWAYS WITH OWN WALKER. NO DIFFICULTIES SEEN WITH AMBULATION. WILL CONTINUE TO MONITOR.
--- NOTE | 2018-02-12 11:01 | NUR ---
PATIENT HAS BEEN SCREENED AND CATEGORIZED LOW NUTRITION RISK. PATIENT WILL BE SEEN WITHIN 7 DAYS OF ADMISSION. 02/18/[address]
--- NOTE | 2018-02-12 11:21 | NUR ---
PT SEEN RESTING IN BED, WATCHING TV. NO SIGNS OF DISTRESS. NO COMPLAINTS OF PAIN OR DISCOMFORT.
--- NOTE | 2018-02-12 12:00 | NUR ---
ALL DISCHARGE PAPERWORK, INCLUDING INSTRUCTIONS TO FOLLOW UP WITH PCP, GIVEN TO PT. ID BANDS REMOVED. IV SITE REMOVED WITH MINIMAL BLOOD LOSS AND LUMEN COMPLETELY INTACT. ALL PT BELONGS ARE WITH PT. PT TO CALL [facility] FOR RIDE FROM HOSPITAL. WILL CONTINUE TO MONITOR.
--- NOTE | 2018-02-12 12:10 | NUR ---
PT LEFT UNIT WITH ALL PERSONAL BELONGINGS, INCLUDING WALKER, AND DISCHARGE PAPERWORK.
--- NOTE | 2018-02-12 14:35 | NUR ---
CM NOTE INITIAL REVIEW AND DC SUMMARY FAXED TO [facility] [phone] [facility] # [phone]
== END 2018-02-12 12:10 | disposition home or self-care (01) | DRG 660 ==
LOC: MED 12:30 → MTU 15:55
PROVIDERS: ADMIT Hospitalist; ATTEND Hospitalist
DX: D61.818 Other pancytopenia (principal); E83.51 Hypocalcemia; F10.239 Alcohol dependence with withdrawal, unspecified; Y90.9 Presence of alcohol in blood, level not specified; Z59.0 Homelessness; Z76.5 Malingerer [conscious simulation]; Z88.6 Allergy status to analgesic agent; Z87.891 Personal history of nicotine dependence; Z87.81 Personal history of (healed) traumatic fracture
CPT/HCPCS: 36415; 71045; 80053; 80305; 81003; 83690; 84484; 85025; 85610; 87081; 93005; 96361; 96374; 96375; 99285; A9153; J2060; J2270; J2405; J3411; J3475; J3490; J7030; Q0092

== ENCOUNTER 2018-02-15 12:22 | Emergency (ER) | payer OTHER ==
[~2018-02-15] VITALS: Ht 165.1 cm; Wt 77.1 kg
--- NOTE | 2018-02-15 12:22 | NUR ---
PT EMELYN BLS TO ER BED 06
[2018-02-15 12:24] VITALS: BP 111/75
[2018-02-15] MEDS ORDERED: MULTIVITAMIN-12 10 ML, THIAMINE 100 MG, MAGNESIUM SULFATE 50% 2,000 MG, FOLIC ACID 5 MG... IV ONE ×5 (13:05)
--- NOTE | 2018-02-15 13:12 | NUR ---
CALLED PHARMACY FOR MED
--- NOTE | 2018-02-15 13:26 | NUR ---
PT GIVEN FOOD TRAY.
[2018-02-15 13:28] LABS: BASOPHILS % (AUTO) 1.5 % (0.0-2.0); EOSINOPHILS # (AUTO) 0.1 K/uL (0-0.4); HEMATOCRIT 32.1 % (36-48); HEMOGLOBIN 10.6 g/dL (12.0-16.0); LYMPHOCYTES # (AUTO) 1.4 K/uL (2.5-16.5); LYMPHOCYTES % (AUTO) 52.4 % (20.5-51.1); MEAN CORPUSCULAR HEMOGLOBIN 33 pg (27-31); MEAN CORPUSCULAR HGB CONC 33 g/dL (33-37); MEAN CORPUSCULAR VOLUME 100.1 fL (80-94); MONOCYTES # (AUTO) 0.2 K/uL (0.8-1.0); MONOCYTES % (AUTO) 6.9 % (1.7-9.3); NEUTROPHILS % (AUTO) 37.2 % (42.2-75.2); PLATELET COUNT (AUTO) 131 K/uL (140-450); RED BLOOD CELL COUNT(AUTO) 3.21 MIL/uL (4.20-5.40); RED CELL DISTRIBUTION WIDTH 18.6 % (11.6-13.7); WHITE BLOOD COUNT (AUTO) 2.6 K/uL (4.8-10.8)
[2018-02-15] MEDS ORDERED: MULTIVITAMIN-12 10 ML, THIAMINE 100 MG, FOLIC ACID 5 MG in NACL 0.9% 1,000 ML IV ONE (13:40)
[2018-02-15 13:45] LABS: ANION GAP 12.9 (8-16); CARBON DIOXIDE 26.1 mmol/L (21-32); CREATININE 0.5 mg/dL (0.6-1.3)
[2018-02-15 13:53] LABS: ALBUMIN 3.1 g/dL (3.4-5.0); TOTAL BILIRUBIN 0.4 mg/dL (0.0-1.0)
--- NOTE | 2018-02-15 14:00 | NUR ---
PT GIVEN BLANKET AND MILK. PT [id number] IN NO APPEARENT DISRESS
--- NOTE | 2018-02-15 15:00 | NUR ---
PT APPEARS TO BE SLEEPING VSS , RR EVEN/UNLABORED
--- NOTE | 2018-02-15 16:34 | NUR ---
PT GIVEN WATER. TOLERATED WELL
--- NOTE | 2018-02-15 18:00 | NUR ---
PT AMBULATED TO THE BATHROOM WITH ASSISTIVE DEVICE
[2018-02-15 18:08] VITALS: BP 108/64
--- NOTE | 2018-02-15 18:08 | NUR ---
Patient discharged with v/s stable. Written and verbal after care instructions given and explained. Patient verbalized understanding. Ambulatory with steady gait. All questions addressed prior to discharge. Advised to follow up with PMD.
== END 2018-02-15 18:08 | disposition home or self-care (01) ==
LOC: MED 12:22
DX: F10.129 Alcohol abuse with intoxication, unspecified (principal); M25.512 Pain in left shoulder; Z88.8 Allergy status to other drugs, medicaments and biological substances
CPT/HCPCS: 36415; 80053; 85025; 96365; 96366; 99285; A9153; G0482; J3411; J3490; J7030; 99284; J3475

== ENCOUNTER 2018-05-04 08:16 | Emergency (ER) | payer OTHER ==
[~2018-05-04] VITALS: Ht 160 cm; Wt 68.0 kg
[2018-05-04 08:21] VITALS: BP 117/68
[2018-05-04] MEDS ORDERED: NACL 0.9% 1,000 ML IV ONE (08:45)
[2018-05-04] MEDS ORDERED: MULTIVITAMIN-12 10 ML, THIAMINE 100 MG, FOLIC ACID 1 MG, MAGNESIUM SULFATE 50% 2,000 MG... IV SCH ×5 (08:50)
[2018-05-04 09:27] LABS: BASOPHILS % (AUTO) 1.1 % (0.0-2.0); EOSINOPHILS % (AUTO) 0.6 % (0.0-4.0); HEMATOCRIT 31.2 % (36-48); HEMOGLOBIN 10.2 g/dL (12.0-16.0); LYMPHOCYTES % (AUTO) 36.6 % (20.5-51.1); MEAN CORPUSCULAR HEMOGLOBIN 33 pg (27-31); MEAN CORPUSCULAR HGB CONC 33 g/dL (33-37); MEAN CORPUSCULAR VOLUME 99.3 fL (80-94); MONOCYTES # (AUTO) 0.2 K/uL (0.8-1.0); MONOCYTES % (AUTO) 6.4 % (1.7-9.3); NEUTROPHILS # (AUTO) 1.5 K/uL (1.8-7.7); NEUTROPHILS % (AUTO) 55.3 % (42.2-75.2); PLATELET COUNT (AUTO) 189 K/uL (140-450); RED BLOOD CELL COUNT(AUTO) 3.15 MIL/uL (4.20-5.40); WHITE BLOOD COUNT (AUTO) 2.8 K/uL (4.8-10.8)
[2018-05-04 10:28] LABS: ALBUMIN 2.7 g/dL (3.4-5.0); TOTAL BILIRUBIN 0.4 mg/dL (0.0-1.0)
[2018-05-04 11:24] LABS: ANION GAP 18.9 (8-16); CARBON DIOXIDE 24.2 mmol/L (21-32); CREATININE 0.6 mg/dL (0.6-1.3); POTASSIUM 3.1 mmol/L (3.5-5.1)
[2018-05-04] MEDS ORDERED: POTASSIUM CHLORIDE 10 MEQ TABER PO ONE (11:30)
[2018-05-04 12:43] VITALS: BP 114/58
[2018-05-04 12:44] LABS: BILIRUBIN,URINE NEGATIVE (NEGATIVE); BLOOD, URINE NEGATIVE (NEGATIVE); COLOR,URINE YELLOW (YELLOW); LEUKOCYTE ESTERASE ,URINE NEGATIVE (NEGATIVE); NITRITE, URINE NEGATIVE (NEGATIVE); UGLUCOSE NEGATIVE (NEGATIVE)
[2018-05-04 12:45] LABS: APPEARANCE,URINE CLEAR (CLEAR)
[2018-05-04 12:46] LABS: RBC,URINE 0-5 (RARE) /HPF (0-5); WBC,URINE 0-5 (RARE) /HPF (0-5)
== END 2018-05-04 12:43 | disposition home or self-care (01) ==
LOC: MED 08:16
DX: S42.212A Unspecified displaced fracture of surgical neck of left humerus, initial encounter for closed fracture (principal); F10.129 Alcohol abuse with intoxication, unspecified; Z59.0 Homelessness; F41.9 Anxiety disorder, unspecified; F32.9 Major depressive disorder, single episode, unspecified; R94.31 Abnormal electrocardiogram [ECG] [EKG]; Z88.6 Allergy status to analgesic agent; X58.XXXA Exposure to other specified factors, initial encounter; Y93.89 Activity, other specified; Y92.89 Other specified places as the place of occurrence of the external cause; Y99.8 Other external cause status
CPT/HCPCS: 36415; 71045; 73060; 80053; 81001; 83690; 84484; 85025; 93005; 96365; 96366; 99285; A9153; G0482; J3411; J3475; J3490; J7030; Q0092